=== PATIENT | female | born 1950 | race Caucasian/White ===

== ENCOUNTER 2023-12-19 23:00 | Inpatient (IN) | payer MEDICARE, OTHER, SELFPAY ==
[2023-12-19] VITALS (9 sets, daily range): BP systolic 104–140; BP diastolic 57–72; BMI 18.7
--- NOTE | 2023-12-19 21:04 | ED.GENMED ---
Addendum entered and electronically signed by Ron Jara DO 12/20/23 00:47:
Call from [facility] CAT scan ordered earlier patient with mets, gallstones, distended colon possible stercoral colitis, distended bladder
Reviewed with admitting team ANGELINA
Original Note:
History of Present Illness
General
Chief Complaint: Dizziness
Source: patient and family
Exam Limitations: none
Time Seen by Provider: 12/19/23 20:34
Nursing documentation reviewed up to this point in time: agreed with
Travel History
Have you had any contact with someone who has COVID-19?: No
Do you have any symptoms of coronavirus? Fever > 100 degrees, chills, cough, shortness of breath, sore throat, loss of taste or smell, muscle aches, or headache?: No
History of Present Illness
History of Present Illness:
73-year-old female presents emerged from complaining of nausea and dizziness that started 7 PM tonight. She has been getting weaker since her last treatment on 12/11/2023. She has chronic right lower extremity edema. She has stage IV lung cancer
with metastasis to the liver and brain. The brain was irradiated.
Past History
Past History
ED Past Medical History: Cancer (Lung, breast)
ED Past Surgical History: Other
Social History
Tobacco: Non-smoker
Alcohol: None
Drug: None
Living: with family
Review of Systems
Review of Systems
Allergies reviewed?: Yes
All Other Systems: Not applicable
Constitutional: Reports fatigue
EENT: Reports no symptoms
Respiratory: Reports no symptoms
Cardiac: Reports no symptoms
ABD/GI: Reports nausea
: Reports no symptoms
Musculoskeletal: Reports no symptoms
Skin: Reports no symptoms
Neurological: Reports weakness
Endocrine: Reports no symptoms
Hematologic/Lymphatic: Reports no symptoms
Psychiatric: Reports no symptoms
Phy Exam
Physical Exam
Physical Exam:
Physical Exam
General: Chronic ill appearance, afebrile
Neck: supple. no meningeal signs. normal posterior pharynx
Heart: s1/s2 tachycardia, no murmur. equal radial
pulses.
HEENT: Pupils equal round reactive to light, EOMI
Lungs: no acute respiratory distress. clear bilaterally
Abdomen: normal bowel sounds. not tender. no CVAT
Neuro: alert and oriented. no focal neurological deficits cranial nerves II through XII intact
Skin: no rash
Psychiatric: well kept. interactive and cooperative
Extremities: Right lower extremity edema. no calf tenderness. negative homans. good distal pulses
Course
Orders/Labs/Results
Orders:
Orders
12/19/23 20:36
CT Head W/o Iv Contrast Urgent
Comment:
Reason For Exam: dizziness
12/19/23 20:38
Electrocardiogram (*1) Urgent
Reason for Study: Vertigo / Dizzy
EKG- Treatment ONCE
12/19/23 20:39
IV Insert/Care/Rem.- Treatment PRN
12/19/23 20:58
Complete Blood Count/With Diff Urgent
Comprehensive Metabolic Panel Urgent
12/19/23 21:04
0.9% Sodium Chloride 1000 ml [Nss] 1,000 ml IV BOLUS
12/19/23 21:34
* Blood Bank Products Urgent
Dr's Orders: 1 unit prbcs
Blood Bank Products: *Packed RBC Leuko(PRBC's)
Quantity: 1
Transfuse Today: Yes
Reason: Anemia
12/19/23 21:54
Type+Screen Urgent
BBK Wristband Number:
12/19/23 22:24
Admit/Transfer Patient As Directed
Co-Sign Provider:
Level of Care: Inpatient admission
Assign to:: Medical/Surgical
Physician / Group: kathleen
Diagnosis: pancyropenia
Reason for Hospitalization: pancytopenia
Expected length of stay greater than two midnights?: Yes
ELOS- Estimated Length of Stay in days: 2
I certify the patient meets the requirements for IP care: Yes
12/19/23 22:25
Code Status As Directed
Resuscitation Status: Full Code
12/19/23 22:27
C difficile Antigen & Toxins Urgent
NISHA Source: Feces/Stool
Specimen Description:
Stool Culture Urgent
NISHA Source: Feces/Stool
Specimen Description:
12/19/23 22:29
Blood Bank Products [* Blood Bank Products] Routine
Blood Bank Products: Platelets Leukoreduced
Quantity: 1
Transfuse Today: Yes
Reason: Thrombocytopenia
12/19/23 22:30
Blood Culture Q30M
NISHA Source: Blood/Venous
Specimen Description:
12/19/23 22:31
Potassium Chloride [KCl] 40 meq 0.9% Sodium Chloride 250 ml [Nss] 250 ml IV NOW
12/19/23 22:39
Abdomen/Pelvis wo Contrast CT [CT Abd/pelvis Wo Iv Cont] Urgent
Comment:
Reason For Exam: abdominal distention/ diarrhea
12/19/23 23:00
Blood Culture Q30M
NISHA Source: Blood/Venous
Specimen Description:
Abnormal Lab Results
12/19/23 12/19/23
20:58 21:54
WBC 1.1 L* 10^3/uL
(4.8-10.8)
RBC 1.86 L 10^6/uL
(4.20-5.40)
Hgb 6.1 L* g/dL
(12.0-16.0)
Hct 17.3 L* %
(37.0-47.0)
MCH 32.8 H pg
(27.0-31.0)
RDW 18.6 H %
(11.5-14.5)
Plt Count 7 L* 10^3/uL
(130-400)
Absolute Neuts (auto) 0.6 L* 10^3/uL
(1.4-6.5)
Absolute Lymphs (auto) 0.3 L 10^3/uL
(1.2-3.4)
Immature Gran % 0.9 H %
(0-0.5)
Monocytes % 15.9 H %
(1.7-9.3)
Sodium 127 L mmol/L
(135-145)
Potassium 3.3 L mmol/L
(3.5-5.1)
Chloride 95 L mmol/L
(98-107)
BUN 49 H mg/dl
(7-17)
Creatinine 1.4 H mg/dL
(0.6-1.0)
Glucose 124 H mg/dl
(70-99)
Total Protein 5.9 L g/dl
(6.3-8.2)
Albumin 2.9 L g/dl
(3.5-5.0)
Crossmatch IS Only See Detail
12/19/23 20:58
12/19/23 20:58
Vital Signs
Initial and Last Documented VS:
Initial Vital Signs
Temp Pulse Resp BP Pulse Ox
97.3 F 103 19 126/72 97
12/19/23 19:43 12/19/23 19:43 12/19/23 19:43 12/19/23 19:43 12/19/23 19:43
Last Documented Vital Signs
Temp Pulse Resp BP Pulse Ox
98.9 F 93 20 136/72 97
12/19/23 23:23 12/19/23 23:23 12/19/23 23:23 12/19/23 23:23 12/19/23 19:43
MDM/Problems Addressed
Differential Diagnosis Includes:
Anemia, pancytopenia, brain metastasis, CVA
MDM/Problems Addressed:
73-year-old female with pancytopenia, blood transfusion ordered. Admit to hospitalist. No signs of bleeding. No signs of
Chronic conditions affecting care: Cancer (Lung cancer)
Acute Exacerbation and/or Progression of Chronic Illness: Cancer (Lung cancer on chemo)
*Radiology
Radiology exam reviewed: radiology read reviewed (CT head no acute findings)
*Pulse Oximetry
Patient hypoxic: no
*EKG
Interpreted by ED Provider?: Yes
EKG Intrepretation Date: 12/19/23
EKG Intrepretation Time: 21:27
Interpretation: abnormal
Comparison EKG: changes noted
Heart Rate: 106
Rate: tachycardiac
Rhythm: sinus tachycardia
[place]: normal axis
Interval: normal interval
QRS Pattern: normal QRS
Ischemia: no ischemia
*Cylinder Handler Interpretation
Rate: tachycardiac
Interpretation: abnormal
Heart Rate: 106
Rhythm: sinus tachycardia
*Critical Care Note
Total Time (30-74mins, 75-104mins- exclusive of procedures): 30
comment:
Critical care statement: A total of 30 minutes of critical care time was provided for this patient. This includes management of unstable vital signs, evaluation of the patient at bedside, reviewing the patient's pertinent medical records, discussion
with consultants, review of old EKGs and review of pertinent medical records. This time with separate from time utilized to perform the aforementioned documented procedures
Data Reviewed
Review of Other/Old Records Reveals: Labs
Patient Management
Social determinants of health affecting care: Living situation and Strong social support
Discussion with other providers: Hospitalist
Escalation/DeEscalation of care consider admission/obs:
Admit indicated
ED Attending Note
-
Portions of this chart may have been created with voice recognition software.� Occasional wrong word or��sound alike� substitutions may have occurred due to the inherent limitations of voice recognition software.
Discharge Plan
Departure
Patient Disposition: Admit
Date of Disposition: 12/19/23
Time of Disposition: 21:32
Admit to: Med/Surg
Presentation/result/management discussed w/ accepting MD/DO: Hospitalist
Patient with high blood pressure during this ER visit?: Yes
Condition: Fair
Discharge Problem:
Pancytopenia, Hyponatremia
Interventions
Interventions:
*Risk Screen - Suicide Last Done: 12/19/23 19:51
*General Assessment Last Done: 12/19/23 19:51
*Neglect/Abuse Screening Last Done: 12/19/23 19:51
ED- Fall Risk Assessment Last Done: 12/19/23 19:51
*ED COVID-19 Vaccine History Last Done: 12/19/23 19:51
ED- Neurological Assessment Last Done: 12/19/23 19:51
ED- Cardiac Assessment Last Done: 12/19/23 19:51
ED Swallowing Screen Last Done: 12/19/23 23:17
[2023-12-19 21:15] LABS: ALT (SGPT) < 10 U/L (0-35); AST (SGOT) 18 U/L (14-36); Albumin 2.9 g/dl (3.5-5.0); Alkaline Phosphatase 92 U/L (38-126); Blood Urea Nitrogen 49 mg/dl (7-17); Calcium 8.6 mg/dl (8.4-10.2); Carbon Dioxide 24 mmol/L (22-30); Chloride 95 mmol/L (98-107); Estimated Creatinine Clearance 24 ml/min; Glucose 124 mg/dl (70-99); Potassium 3.3 mmol/L (3.5-5.1); Sodium 127 mmol/L (135-145); Total Bilirubin 0.7 mg/dl (0.2-1.3); Total Protein 5.9 g/dl (6.3-8.2); eGFR 39.23
[2023-12-19 21:25] LABS: % Eosinophils 0.9 % (0-6); % Immature Granulocytes 0.9 % (0-0.5); % Lymphocytes 29.9 % (20.5-51.1); % Monocytes 15.9 % (1.7-9.3); % Neutrophils 52.4 % (42.2-75.2); Absolute Lymphocytes 0.3 10^3/uL (1.2-3.4); Absolute Monocytes 0.2 10^3/uL (0.1-0.6); Mean Corp Hgb Conc. 35.3 g/dL (33.0-37.0); Mean Corpuscular Hgb 32.8 pg (27.0-31.0); Mean Platelet Volume 9.4 fL (7.4-10.4); Nucleated Red Blood Cells % 0 %; Red Blood Cell Count 1.86 10^6/uL (4.20-5.40); Red Cell Dist. Width 18.6 % (11.5-14.5)
[2023-12-19 21:28] LABS: Absolute Neutrophils 0.6 10^3/uL (1.4-6.5); Hematocrit 17.3 % (37.0-47.0); Hemoglobin 6.1 g/dL (12.0-16.0); Platelet Count 7 10^3/uL (130-400); White Blood Cell Count 1.1 10^3/uL (4.8-10.8)
[2023-12-19] MEDS: NSS 1000 IV (21:39)
--- NOTE | 2023-12-19 22:33 | HPS.HSE ---
Addendum entered and electronically signed by José Ohara MD 12/19/23 22:35:
Hold Cadence.
Original Note:
Family Physician
-
Family Physician: Neal Matson
Chief Complaint
-
weakness
History of Present Illness
73-year-old female past medical history of stage IV lung cancer with metastases to liver and brain on chemotherapy followed at [facility], breast cancer status post left breast lumpectomy, anemia of chronic disease, anxiety/depression, insomnia,
history of right hip replacement presenting with severe weakness, dizziness for the past several days. Patient has been getting severely weaker since her last chemotherapy treatment on 12/11. History is obtained from daughter. Patient does have
abdominal distention and has been having loose stools for the past week. She has been taking Imodium as needed. No fever, nausea or vomiting, cough, shortness of breath, chest pain, urinary symptoms.
Patient had routine imaging including MRI brain and CT abdomen pelvis last week at [facility]. Daughter has reports with her. CT abdomen pelvis showed some slightly enlarged tumor burden in the liver, stable/slightly larger metastatic
retroperitoneal and upper abdominal lymphadenopathy, slight mesenteric haziness may be vascular congestion, thickening of rectum possibly proctocolitis, cholelithiasis with mild gallbladder distention and mild gallbladder thickening.
Medical History
Past Medical History
Past Medical History: Reports Other (stage IV lung cancer with metastases to liver and brain on chemotherapy followed at [facility], breast cancer status post left breast lumpectomy, anemia of chronic disease, anxiety/depression, insomnia, history of
right hip replacement)
Past Surgical History: Reports None
Social History
Tobacco: Non-smoker
Alcohol: None
Drug: None
Family History
Family History: Not pertinent
Allergies / Home Medications
Allergies reflects when Allergies were last updated in [facility].
Home Medications with original date entered in [facility]
Allergy/Medication List:
Allergies
Allergy/AdvReac Type Severity Reaction Status Date / Time
Penicillins Allergy Unknown Verified 04/14/23 20:50
Home Medications
osimertinib 80 mg tablet (Tagrisso) 80 mg PO DAILY Cancer 02/11/23
lorazepam 0.5 mg tablet (Ativan) 0.5 mg PO BID PRN anxiety 04/15/23
citalopram 10 mg tablet 10 mg PO DAILY@199910/12/23
folic acid 1 mg tablet 1 mg PO DAILY@199910/12/23
olanzapine 5 mg tablet 5 mg PO USEASDIRECTD 10/12/23
ondansetron HCl 8 mg tablet 8 mg PO Q8H PRN nausea/vomiting 10/12/23
olanzapine 5 mg tablet 5 mg PO HS PRN nausea 12/19/23
pantoprazole 40 mg tablet,delayed release 40 mg PO DAILY PRN gi upset 12/19/23
Review of Systems
-
History Source: Patient
A 12 point ROS was completed and negative except as noted: Yes
Constitutional: Reports No Symptoms
EENT: Reports No Symptoms
Respiratory: Reports No Symptoms
Cardiac: Reports No Symptoms
Abdomen/GI: Reports No Symptoms
: Reports No Symptoms
Musculoskeletal: Reports No Symptoms
Skin: Reports No Symptoms
Neurological: Reports No Symptoms
Endocrine: Reports No Symptoms
Hematologic/Lymphatic: Reports No Symptoms
Psych: Reports No Symptoms
Physical Exam
Vital Signs
Vital Signs
Temp Pulse Resp BP Pulse Ox
97.3 F 95 21 116/64 97
12/19/23 19:43 12/19/23 21:15 12/19/23 21:15 12/19/23 21:15 12/19/23 19:43
Physical Exam
General: Well Developed, Well Nourished and No Apparent Distress
HEENT: NormoCephalic, Moist mucous membranes and Atraumatic
Respiratory: Clear
Cardiac: S1/S2 and Regular Rhythm; No Murmur or Rub
GI: Soft, Non Tender, Normal Bowel Sounds, Tender and Distended; No Organomegaly
Rectal: Deferred by Provider
Musculoskeletal: No Clubbing, No Cyanosis and No Edema
Skin: No Rash
Neuro: Nonfocal/grossly intact
Laboratory Results
-
12/19/23 20:58
12/19/23 20:58
Laboratory Results
Total Bilirubin 0.7 mg/dl (0.2-1.3) 12/19/23 20:58
AST 18 U/L (14-36) 12/19/23 20:58
ALT < 10 U/L (0-35) 12/19/23 20:58
Alkaline Phosphatase 92 U/L (38-126) 12/19/23 20:58
Data Reviewed
-
Lab Data: Labs Reviewed by me
Old Records: Reviewed
Impression/Plan
-
IMPRESSION:
PLAN:
# Abdominal distention//loose bowel movements
-Patient diffusely tender to palpation of abdomen and abdomen distended
-CAT scan abdomen performed a week ago showing some enlarging cancer lesions, possibly proctocolitis/mild gallbladder wall thickening
-Check stool culture/C. difficile
-Check blood cultures
-No fever
-NPO
-Check CT abdomen to evaluate for worsening infection
-Hold off on antibiotics at this time
#Pancytopenia secondary to chemotherapy
-See individually below
-No fever
#Leukopenia
-ANC of 0.6
# Acute on chronic anemia
-1 unit PRBC transfusion
#Thrombocytopenia
-Platelets of 7
-1 unit platelet transfusion
# Hypokalemia due to GI losses
-Replete potassium
# Hyponatremia secondary to GI losses
-IV fluids
# Acute kidney injury
-Creatinine 1.4 from baseline 0.7 in April
-Monitor with IV
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
History of breast cancer status post left breast lumpectomy
Brain metastases status post radiation
Anemia of chronic disease
Anxiety/depression
-Continue citalopram, Ativan, olanzapine
Insomnia
History of right hip replacement
-Chronic right lower extremity swelling worse than left
History of urinary retention
Full code
DVT prophylaxis-SCDs
NPO
[2023-12-20] VITALS (12 sets, daily range): BP systolic 100–141; BP diastolic 49–72; BMI 18.6
[2023-12-20] MEDS: ATIVAN 0.5 MG PO ×3 (01:46→20:12)
[2023-12-20] MEDS: NSS 1000 IV ×2 (01:47→17:19)
[2023-12-20 01:52] LABS: Mean Corp Hgb Conc. 34.9 g/dL (33.0-37.0); Mean Corpuscular Hgb 33.1 pg (27.0-31.0); Mean Platelet Volume 11.2 fL (7.4-10.4); Red Cell Dist. Width 18.5 % (11.5-14.5)
[2023-12-20 01:54] LABS: Hematocrit 15.2 % (37.0-47.0); Hemoglobin 5.3 g/dL (12.0-16.0); White Blood Cell Count 1.1 10^3/uL (4.8-10.8)
[2023-12-20 01:55] LABS: Platelet Count 22 10^3/uL (130-400)
--- NOTE | 2023-12-20 02:08 | W.PN.UPDATE ---
Addendum entered and electronically signed by ANGELINA Albarado 12/20/23 19:22:
12/20 AT 0200 RN notified ASSISTED LIVING EXECUTIVE DIRECTOR Repeat Hgb prior to first unit of PRBC's noted to be 5.3, therefore one more unit of PRBC's added with total of 2 units of PRBC's to be inused, labs due in AM.
Original Note:
Update Note
Progress Note Update
CT abd shows stercoral proctocolitis, will add antibiotics Cefepime 1g [id number]. Will add bladder scan for urinary retention, and UA.
[2023-12-20 02:11] LABS: ALT (SGPT) < 10 U/L (0-35); AST (SGOT) 16 U/L (14-36); Albumin 2.5 g/dl (3.5-5.0); Alkaline Phosphatase 87 U/L (38-126); Blood Urea Nitrogen 44 mg/dl (7-17); Calcium 8.1 mg/dl (8.4-10.2); Carbon Dioxide 26 mmol/L (22-30); Chloride 97 mmol/L (98-107); Estimated Creatinine Clearance 24 ml/min; Glucose 104 mg/dl (70-99); Sodium 132 mmol/L (135-145); Total Bilirubin 0.6 mg/dl (0.2-1.3); Total Protein 5.3 g/dl (6.3-8.2); eGFR 39.23
--- NOTE | 2023-12-20 02:21 | W.PN.UPDATE ---
Update Note
Progress Note Update
hgb 5.3 prior transfusing 1 unit of PRBC's for hgb of 6.1. No active bleeding, stable vitals. Will order another unit of blood, total of 2 units of PRBC's
--- NOTE | 2023-12-20 03:15 | PTCARENOTE ---
Received pt from the ED via stretcher, pulled over to hospital bed by staff x3. Pt AAOx3, anxious and tearful. Sylvia band to LUE for hx of lumpectomy. Full assessment as documented. Most recent Hgb level 5.3 and platelets 22. Pt received 1 unit
platelets in the ED, 1 unit of PRBC ordered, sent for and initiated, see TAR. Pt with outstanding IV Potassium order, pt is difficult to obtain IV access, arrives to the unit with singular access to the RUE. Pt tolerating blood products, VAT team
called for second line and obtained to R forearm, IV Potassium obtained from pharmacy and hung, see MAR. Pt oriented to room and use of call nunez. Pt resting comfortably at this time, emotional support and warm blankets provided.
[2023-12-20] MEDS: MAXIPIME 1000 MG IV ×2 (03:21→13:04)
[2023-12-20] MEDS: STERILE WATER FOR INJECTION 10 ML IV ×2 (03:21→13:04)
[2023-12-20] MEDS: KCL 270 MEQ IV (03:42)
[2023-12-20 04:06] LABS: Urine Albumin Trace (Neg - Trace); Urine Bilirubin Negative (Negative); Urine Character Clear (Clear); Urine Color Yellow; Urine Glucose Negative (Negative); Urine Ketone Negative (Negative); Urine Leukocyte Negative (Negative); Urine Nitrite Negative (Negative); Urine Occult Blood Negative (Negative); Urine Urobilinogen Negative (Neg - 1+)
--- NOTE | 2023-12-20 05:11 | PTCARENOTE ---
Pt repeatedly reports she has to urinate; purewick in place with adequate suction, pt remains dry. Pt with a hx of urinary retention; bladder scanned for >725mL urine due to no urine output, straight cath performed, pt tolerated well. 875mL holland
colored urine drained from pt's bladder, UA obtained and sent to the lab.
--- NOTE | 2023-12-20 07:42 | CON.GI ---
Addendum entered and electronically signed by Neal Nix MD 12/20/23 10:42:
Patient seen and examined, agree for Spectre's note. Patient presents with dizziness, decreased appetite and loose stools. Has been using Imodium recently for loose stools, has not had any vomiting has had decreased appetite. She denies any
significant abdominal pain now, and abdominal exam is benign. CT scan which I did personally review shows large amount of stool throughout the colon with fecal impaction as well as metastatic disease. At this point I discussed the importance of
enema, and may need to repeat to help start evacuation. Will start clear liquid diet for now given no vomiting and benign exam. Can start MiraLAX once infection has resolved.
Original Note:
Consultation
-
Date/Time Consultation Requested: 12/20/23729
Date/Time Consultation Performed: 12/20/23739
Requesting Provider: Aly Hui MD
Performing Provider: ANGELINA Johansen, Adrián Nix MD
Reason for Consultation: constipation
Medical History
Chief Complaint / HPI
Chief Complaint: weakness
History of Present Illness:
Pt is a 73yo present with hx stage IV lung CA with mets to liver and brain on oral chemo Tagrisso and Infusion therapy every 3 weeks with last treatment 12/06/23 followed by [facility]. She also has hx breast CA with prior lumpectomy 20
years ago, anemia with current pancytopenia, anxiety, depression, insomnia, wrist fracture with fall and hip replacement then after recovery fracture of other hip. She now presents to with weakness and dizziness and onset of loose stools with
Imodium use. Per family noted she had recent imaging with MRI brain and CT abdomen pelvis last 1-2 weeks with some slightly enlarged tumor burden in the liver, stable/slightly larger metastatic retroperitoneal and upper abdominal
lymphadenopathy, slight mesenteric haziness may be vascular congestion, thickening of rectum possibly proctocolitis, cholelithiasis with mild gallbladder distention and mild gallbladder thickening. She had recent CT in ER with Verbal report of CT
with stercoral proctocolitis. Pt also noted with pancytopenia on admission WBC 1. 1, hbg 6.1, platelets 7,000, with ANC of 0.6, Na 127, K 3.3, and creat 1.4.
Pt currently admits to decreased appetite. She does states some recent diarrhea and feeling of stool leaking out without control with hx prior constipation She denies dysphagia, GERD, vomiting, abdominal pain,blood or black in stools. Pt
will get diarrhea with small amount so soft stool
Past Medical History
Past Medical History: Cancer (stage IV lung CA with metastases to liver and brain on chemo follows at [facility], breast cancer s/p lumpectomy), Psychiatric (anxiety/depression) and Other (anemia, insomnia, PNA)
Past Surgical History: Orthopedic (wrist fracture, February 2023 with left hip fracture with ORIF then April 2023 with right hip fracture with right hemiarthroplasty )
Social History
Tobacco: Former Smoker
Alcohol: None
Drug: None
Personal:
Living: With Family
Employment: Retired
Family History
Family History: Other (no family hx colon Ca or polyps)
Allergies / Home Medications
Allergy/AdvReac Type Severity Reaction Status Date / Time
Penicillins Allergy Unknown Verified 04/14/23 20:50
Medication Instructions Recorded
osimertinib 80 mg tablet (Tagrisso) 80 mg PO DAILY Cancer 02/11/23
lorazepam 0.5 mg tablet (Ativan) 0.5 mg PO BID PRN anxiety 04/15/23
citalopram 10 mg tablet 10 mg PO DAILY@199910/12/23
folic acid 1 mg tablet 1 mg PO DAILY@199910/12/23
olanzapine 5 mg tablet 5 mg PO USEASDIRECTD 10/12/23
ondansetron HCl 8 mg tablet 8 mg PO Q8H PRN nausea/vomiting 10/12/23
olanzapine 5 mg tablet 5 mg PO HS PRN nausea 12/19/23
pantoprazole 40 mg tablet,delayed 40 mg PO DAILY PRN gi upset 12/19/23
release
Review of Systems
-
History Source: Patient
Constitutional: Reports Weight Loss and Other (decreased appetite )
EENT: Reports No Symptoms
Respiratory: Reports No Symptoms
Cardiac: Reports No Symptoms
Abdomen/GI: Reports Diarrhea, Constipated and Other (decreased appetite )
: Reports No Symptoms
Musculoskeletal: Reports No Symptoms
Skin: Reports No Symptoms
Neurological: Reports Dizzy and Weakness
Endocrine: Reports No Symptoms
Hematologic/Lymphatic: Reports No Symptoms
Vital Signs
Temp Pulse Resp BP Pulse Ox
98.1 F 83 20 111/63 100
12/20/23 05:24 12/20/23 05:24 12/20/23 05:24 12/20/23 05:24 12/20/23 02:55
Physical Exam
Exam
General: Other (cachetic appearing but awake and conversant )
HEENT: Normocephalic and Anicteric
Respiratory: Clear
Cardiac: Regular Rhythm
GI: Soft, Non Tender and Distended (but soft )
Rectal: Other (pt refused )
Musculoskeletal: No Clubbing and No Cyanosis
Skin: Warm and Dry
Neuro: Awake, Alert and AO x 3 (with occasional forgetfulness to questioning)
Psych: Calm
Results
WBC 1.1 10^3/uL (4.8-10.8) L* 12/20/23 01:23
Hgb 5.3 g/dL (12.0-16.0) L* 12/20/23 01:23
Hct 15.2 % (37.0-47.0) L* 12/20/23 01:23
MCV 95.0 fL (81.0-99.0) 12/20/23 01:23
Plt Count 22 10^3/uL (130-400) L* D 12/20/23 01:23
Absolute Neuts (auto) Cancelled 12/20/23 01:23
Sodium 132 mmol/L (135-145) L 12/20/23 01:23
Potassium 3.0 mmol/L (3.5-5.1) L 12/20/23 01:
Chloride 97 mmol/L (98-107) L 12/20/23 01:23
Carbon Dioxide 26 mmol/L (22-30) 12/20/23 01:23
BUN 44 mg/dl (7-17) H 12/20/23 01:
Creatinine 1.4 mg/dL (0.6-1.0) H 12/20/23 01:
Calcium 8.1 mg/dl (8.4-10.2) L 12/20/23:
Total Bilirubin 0.6 mg/dl (0.2-1.3) 12/20/23 01:
AST 16 U/L (14-36) 12/20/23 01:
ALT < 10 U/L (0-35) 12/20/23 01:
Alkaline Phosphatase 87 U/L (38-126) 12/20/23 01:23
Diagnostic Image Results:
Prior GI Procedures:
EGD: about 5 years ago recalls as normal
Colonoscopy: about 5 years ago recalls as normal
Assessment / Plan
-
Pt is a 73yo present with hx stage IV lung CA with mets to liver and brain on oral chemo Tagrisso and Infusion therapy every 3 weeks with last treatment 12/06/23 followed by [facility]. She also has hx breast CA with prior lumpectomy 20
years ago, anemia with current pancytopenia, anxiety, depression, insomnia, wrist fracture with fall and hip replacement then after recovery fracture of other hip. She now presents to with weakness and dizziness and onset of loose stools with
Imodium use. Per family noted she had recent imaging with MRI brain and CT abdomen pelvis last 1-2 weeks with some slightly enlarged tumor burden in the liver, stable/slightly larger metastatic retroperitoneal and upper abdominal
lymphadenopathy, slight mesenteric haziness may be vascular congestion, thickening of rectum possibly proctocolitis, cholelithiasis with mild gallbladder distention and mild gallbladder thickening. She had recent CT in ER with Verbal report of CT
with stercoral proctocolitis. Pt also noted with pancytopenia on admission WBC 1. 1, hbg 6.1, platelets 7,000, with ANC of 0.6, Na 127, K 3.3, and creat 1.4.
-stercoral proctocolitis
-pancytopenia with neutropenia requiring PRBC's and Platelet transfusion on admission
-stage IV lung Ca with mets to brain and liver on current treatment
-hyponatremia/hypokalemia
-distant hx breast CA
-anxiety/depression
-insomnia
-sacral wound
-wrist fx then February 2023 with left hip fracture with ORIF then April 2023 with right hip fracture with right hemiarthroplasty with limited mobility
PLAN:
etiology of weakness with some loose stool with concern for fecal impaction and stercoral proctocolitis
await final reading of CT
with large stool burden will order MOM enema
pt currently declines but encouraged to proceed
I called and updated daughter who will also encourage pt to proceed
after some clearing out from below then will need oral laxative regiment and advance diet
cont abx
s/p transfusion cont to monitor CBC
cont to correct electrolytes
updated nursing staff
will follow
-
-
Thank you for consultation and allowing me to participate in the patient's care. Please call the personalization specialist GI physician during the after hours with any questions or concerns.
[2023-12-20] MEDS: FLAGYL 500 MG 100 IV ×3 (08:09→23:57)
[2023-12-20] MEDS: DULCOLAX 10 MG RECTAL (09:18)
--- NOTE | 2023-12-20 09:49 | WOUNDNOTE ---
L BUTTOCKS AND SACRUM
--- NOTE | 2023-12-20 09:55 | WOUNDNOTE ---
WON RN note: Patient admitted with Pancytopenia,hyponatremia.
See H&P for complete history. Lives at home with .
PMH:Breast and lung cancer with mets to brain, s/p radiation to brain and current with chemo treatment. Ex Smoker, R hip replacement with chronic R leg edema post surgery.
Wound Location and type/assessment: Patient known to service, last seen 10/13/23 for Small DTI on L buttock, R buttock with stage 2 PI vs shearing. Today patient's wounds appear worse and DTI on L buttock evolving. Under dark discolored skin appears
to be shallow pink wound, suspect stage 2 PI. Sacrum,extending to R buttock with stage 2 PI mixed with friction/shear. Patient confirms that she sits in a recliner chair at home and uses gel cushion. Has regular bed at home, able to turn with
minimal assist. takes care of her and makes her protein shakes she states. Both heels are blanchable and intact, boggy. Skin on legs dry, +1 edema legs and feet, + palpable pedal pulses.
Appetite: Poor, recently has no appetite patient states. Encouraged protein in diet.
Pressure redistribution devices in place: On Accumax, turns easily with one assist, repositioned onto L semi side lying position. Brought in air overlay PCT Luis aware and can apply when patient oob to chair. Air chair cushion placed under heels.
Patient aware to also use when sitting, patient can take upon discharge.
Plan: Will order mineral oil to dry flaky skin on legs, large silicone foam to buttocks. Protective foams to heels.
Will confirm orders with hospitalist and updated nurse Cristin.
Updated care plan and will follow as needed.
Note to case management of equipment requested for discharge: VN if agreeable.
Recommend follow up at wound care center upon discharge.
[2023-12-20 10:12] LABS: Hematocrit 21.8 % (37.0-47.0)
[2023-12-20 10:15] LABS: Hemoglobin 7.8 g/dL (12.0-16.0)
--- NOTE | 2023-12-20 10:16 | W.PN.HOSP.TC ---
Today's Communication/Plan
-
Bowel regimen per GI
Continue with antibiotics
IV fluids
Diet per GI
Repeat EKG in the morning
DC Zofran
Trend CBC and BMP
Assessment / Plan
Assessment / Plan
# Sepsis likely secondary to stercoral proctocolitis
-Patient diffusely tender to palpation of abdomen and abdomen distended
-CAT scan abdomen probable fecal impaction with large volume cc throughout the distended rectum
-Check blood cultures in lab
-No fever
-diet per GI
-Continue with cefepime and add Flagyl
-Continue with IV fluids
-Mild prolonged QTc repeat EKG in the morning. Avoid QTc prolonging meds. Tigan as needed
-GI consultation
#Pancytopenia secondary to chemotherapy
-See individually below
-No fever
#Leukopenia
-ANC of 0.6
# Acute on chronic anemia
- status post 2 units of PRBC and hemoglobin 7.8.
#Thrombocytopenia
-Platelets of 22
-s/p 1 unit platelet transfusion
# Hypokalemia due to GI losses
-Replete potassium
# Hyponatremia secondary to GI losses
-IV fluids
# Acute kidney injury
# Urinary retention possible due to severe constipation
-Creatinine 1.4 from baseline 0.7 in April
-Monitor with IV
-Required straight catheterization overnight. Monitor post resolution of constipation.
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
History of breast cancer status post left breast lumpectomy
Brain metastases status post radiation
Anemia of chronic disease
Anxiety/depression
-Continue Ativan, olanzapine. Hold SSRI. Mild prolonged QTc repeat EKG in the morning. Avoid QTc prolonging meds. Tigan as needed
Insomnia
History of right hip replacement
-Chronic right lower extremity swelling worse than left
History of urinary retention
Small deep tissue injury on left buttocks-poa
Right buttock stage II pressure injury poa
Full code
DVT prophylaxis-SCDs in setting of Severe thrombocytopenia
Long-term prognosis poor
Anticipated Discharge: > 48 hours
Subjective/Interval History
-
Date of Service: December 20, 2023
Denies any nausea or vomiting
Objective Data
-
Labs:
Laboratory Results
12/20/23 12/20/23
01:23 10:04
WBC 1.1 L*
Hgb 5.3 L* 7.8 L D
Hct 15.2 L* 21.8 L
Plt Count 22 L* D
Sodium 132 L Pending
Potassium 3.0 L Pending
Chloride 97 L Pending
Carbon Dioxide 26 Pending
BUN 44 H Pending
Creatinine 1.4 H Pending
Glucose 104 H Pending
Calcium 8.1 L Pending
Total Bilirubin 0.6
AST 16
ALT < 10
Alkaline Phosphatase 87
Vital Signs:
Vital Signs
Temp Pulse Resp BP Pulse Ox
97.7 F 77 16 110/57 96
12/20/23 08:38 12/20/23 08:38 12/20/23 08:38 12/20/23 08:38 12/20/23 10:07
I&O
12/19/23 12/20/23 12/21/23
06:59 06:59 06:59
Intake Total 1400 / 1400 250 / 250
Output Total 1750 / 1750
Balance -350 / -350 250 / 250
Physical Exam
-
General: No Apparent Distress, Appears Chronically Ill and Cachectic
HEENT: Normocephalic, Atraumatic and Moist Mucous Membranes
Respiratory: Clear to Auscultation
Cardiac: Regular Rhythm and S1/S2; Negative Murmur, Rub or Gallop
GI: Soft, Nontender, Nondistended and Normal Bowel Sounds; Negative Organomegaly
Rectal: Deferred by Provider
Musculoskeletal: No Clubbing, No Cyanosis and No Edema
Skin: Negative Rash
Neuro: Awake, Oriented, AO x 3, No Motor Deficits and Nonfocal/Grossly Intact
Psych: Calm
Data Reviewed
-
Total Time Spent with Patient (in minutes): 55
[2023-12-20] MEDS: ZOFRAN 4 MG IV (10:19)
--- NOTE | 2023-12-20 10:51 | CM ---
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
in her 's business. Pharmacy is [facility] in [place] and PCP is Dr. Neal Matson with [facility]. Discharge plan of care to be determined based on medical progression.
[2023-12-20 10:55] LABS: Blood Urea Nitrogen 37 mg/dl (7-17); Calcium 7.6 mg/dl (8.4-10.2); Carbon Dioxide 26 mmol/L (22-30); Chloride 105 mmol/L (98-107); Estimated Creatinine Clearance 26 ml/min; Glucose 98 mg/dl (70-99); Potassium 3.5 mmol/L (3.5-5.1); Sodium 134 mmol/L (135-145); eGFR 42.88
[2023-12-20] MEDS: TYLENOL 1000 MG PO (20:12)
[2023-12-20] MEDS: FOLVITE 1 MG PO (20:13)
[2023-12-21] VITALS (11 sets, daily range): BP systolic 101–133; BP diastolic 37–68; PULSE 87; O2SAT 96–99
[2023-12-21] MEDS: MAXIPIME 1000 MG IV ×2 (02:38→13:18)
[2023-12-21] MEDS: STERILE WATER FOR INJECTION 10 ML IV ×2 (02:38→13:18)
--- NOTE | 2023-12-21 05:50 | W.PN.GI.CBS2 ---
Today's Communication / Plan
-
See assessment and plan for details.
Assessment / Plan
-
1. Constipation/fecal impaction: Now much improved symptoms after suppository and enema. Her exam is now benign and overall feeling better. Will advance diet and add MiraLAX daily, can continue enemas as needed in the future. Will sign off for
now, please call back with any further questions.
Subjective
Subjective
Date of Service: December 21, 2023
Patient had several large bowel movements after suppository and enema, significant overnight, though feeling better, no significant abdominal pain, no nausea.
Objective
Data Reviewed
Laboratory Data:
Laboratory Results
Total Bilirubin 0.6 mg/dl (0.2-1.3) 12/20/23 01:23
AST 16 U/L (14-36) 12/20/23 01:23
ALT < 10 U/L (0-35) 12/20/23 01:23
Alkaline Phosphatase 87 U/L (38-126) 12/20/23 01:23
Vital Signs and I&O:
Vital Signs
Temp Pulse Resp BP Pulse Ox
98.2 F 77 17 103/54 98
12/21/23 03:10 12/21/23 03:10 12/21/23 03:10 12/21/23 03:10 12/21/23 03:10
I&O
12/19/23 12/20/23 12/21/23
06:59 06:59 06:59
Intake Total 1400 / 1400 970 / 970
Output Total 1750 / 1750 650 / 650
Balance -350 / -350 320 / 320
Physical Exam
Physical Exam
General: NAD
Abdomen: normal bowel sounds, soft, no tenderness, no masses or bruits, no ascites
[2023-12-21 06:16] LABS: Hematocrit 24.3 % (37.0-47.0); Hemoglobin 8.4 g/dL (12.0-16.0); Mean Corp Hgb Conc. 34.6 g/dL (33.0-37.0); Mean Corpuscular Hgb 31.8 pg (27.0-31.0); Mean Platelet Volume 10.8 fL (7.4-10.4); Nucleated Red Blood Cells % 0 %; Red Blood Cell Count 2.64 10^6/uL (4.20-5.40); Red Cell Dist. Width 17.9 % (11.5-14.5)
[2023-12-21 06:30] LABS: Platelet Count 10 10^3/uL (130-400)
[2023-12-21 06:39] LABS: Blood Urea Nitrogen 35 mg/dl (7-17); Calcium 7.6 mg/dl (8.4-10.2); Carbon Dioxide 24 mmol/L (22-30); Chloride 107 mmol/L (98-107); Estimated Creatinine Clearance 28 ml/min; Glucose 86 mg/dl (70-99); Potassium 3.3 mmol/L (3.5-5.1); Sodium 133 mmol/L (135-145); eGFR 47.21
[2023-12-21] MEDS: SENOKOT-S 1 TABLET PO ×2 (07:54→20:56)
[2023-12-21] MEDS: MIRALAX 17 GRAMS PO (07:54)
[2023-12-21] MEDS: FLAGYL 500 MG 100 IV ×3 (07:54→23:26)
[2023-12-21] MEDS: KCL ELIXIR 40 MEQ PO (07:54)
[2023-12-21] MEDS: HYDROPHOR 1 APPLIC TOPICAL (07:55)
[2023-12-21] MEDS: PROTONIX 40 MG PO (07:56)
[2023-12-21] MEDS: ATIVAN 0.5 MG PO ×3 (07:57→20:56)
[2023-12-21 10:04] LABS: Absolute Neutrophils -Man Diff 1.3 10^3/uL (1.4-6.5); Band Neutrophils 16 % (0-3); Eosinophils 1 % (0-6); Lymphocytes 16 % (20-51); Monocytes 14 % (2-9); Segmented Neutrophils 53 % (42-75)
[2023-12-21 10:05] LABS: Anisocytosis Slight; Hypochromasia 1+; Macrocytosis Few; Microcytosis Few; Normal RBC Morphology No; Platelets Checked Yes; Total Cells Counted 100
--- NOTE | 2023-12-21 10:15 | W.PN.HOSP.TC ---
Addendum entered and electronically signed by Aly Hui MD 12/21/23 11:54:
Severe protein caloric malnutrition chronic
Original Note:
Today's Communication/Plan
-
Monitor p.o. tolerance
Continue with aggressive bowel regimen
Replete platelets
PT and OT
Assessment / Plan
Assessment / Plan
# Sepsis likely secondary to stercoral proctocolitis
-CAT scan abdomen probable fecal impaction with large volume cc throughout the distended rectum
-Check blood cultures in lab negative so far
-No fever
-Status post suppository and enema with good results
-Continue with cefepime and add Flagyl
-DC IV fluids
-QTc down trended to 460
-GI consultation
#Pancytopenia secondary to chemotherapy
-See individually below
-No fever
#Leukopenia
-ANC of 0.6
# Acute on chronic anemia
- status post 2 units of PRBC and hemoglobin 8.4
#Thrombocytopenia
-Platelets of 10
-Will transfuse additional 1 unit of platelets today
# Hypokalemia due to GI losses
-Replete potassium
# Hyponatremia secondary to GI losses
-Monitor
# Acute kidney injury
# Urinary retention possible due to severe constipation
-Creatinine 1.4 from baseline 0.7 in April
-Persistent urinary retention and Lindsay catheter placed. CT abdomen pelvis did not show any hydronephrosis.
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
History of breast cancer status post left breast lumpectomy
Brain metastases status post radiation
Anemia of chronic disease
Anxiety/depression
-Continue Ativan, olanzapine and restart citalopram
Insomnia
History of right hip replacement
-Chronic right lower extremity swelling worse than left
History of urinary retention
Small deep tissue injury on left buttocks-poa
Right buttock stage II pressure injury poa
PT/OT-dispo TBD
Full code
DVT prophylaxis-SCDs in setting of Severe thrombocytopenia
Long-term prognosis poor
Anticipated Discharge: > 48 hours
Subjective/Interval History
-
Date of Service: December 21, 2023
Had multiple bowel movements yesterday and today
States of mild abdominal discomfort
Objective Data
-
Labs:
Laboratory Results
12/21/23
05:15
WBC 2.0 L*
Hgb 8.4 L
Hct 24.3 L
Plt Count 10 L* D
Sodium 133 L
Potassium 3.3 L
Chloride 107
Carbon Dioxide 24
BUN 35 H
Creatinine 1.2 H
Glucose 86
Calcium 7.6 L
Vital Signs:
Vital Signs
Temp Pulse Resp BP Pulse Ox
97.2 F 83 16 121/64 97
12/21/23 08:26 12/21/23 08:26 12/21/23 08:26 12/21/23 08:26 12/21/23 08:26
I&O
12/20/23 12/21/23 12/22/23
06:59 06:59 06:59
Intake Total 1400 / 1400 1070 / 1070
Output Total 1750 / 1750 1000 / 1000
Balance -350 / -350 70 / 70
Physical Exam
-
General: No Apparent Distress, Appears Chronically Ill and Cachectic
HEENT: Normocephalic, Atraumatic and Moist Mucous Membranes
Respiratory: Clear to Auscultation
Cardiac: Regular Rhythm and S1/S2; Negative Murmur, Rub or Gallop
GI: Soft, Nontender, Nondistended and Normal Bowel Sounds; Negative Organomegaly
Rectal: Deferred by Provider
Musculoskeletal: No Clubbing, No Cyanosis and No Edema
Skin: Negative Rash
Neuro: Awake, Oriented, AO x 3, No Motor Deficits and Nonfocal/Grossly Intact
Psych: Calm
Data Reviewed
-
Total Time Spent with Patient (in minutes): 54
--- NOTE | 2023-12-21 10:31 | PN.CDI ---
CDI
- -
CDI:
Physician Documentation Request
Admit Date: 12/19/23 23:00
Dear Doctor Korina,
Clinical Indicators:
Patient admitted with sepsis due to stercoral proctocolitis. PMH includes stage IV lung cancer, currently on chemotherapy.
BMI 18.6
12/20 PN, Physical Exam: Cachectic
12/20 note/assessment: -'NFPE: severe muscle and fat loss noted.'
-'Per ASPEN/AND guidelines, pt meets for severe malnutrition in the context of chronic
illness as evidenced by < 50% intake est needs x > 1 month, <75% intake est needs x
>3 months, 6.9% weight loss x 2 months, severe muscle and fat loss.'
Based on the information, which of the following most accurately represents the patient's nutritional status?
Severe Protein Calorie Malnutrition
Cachexia only
Other (please specify)
[place] Criteria (ACP Hospitalist 2017)
2 or more criteria must be present for either
non severe or severe malnutrition
Note that the criteria differs related to the
presence of an acute or chronic illness
Acute Illness Chronic Illness
Energy Intake Non Severe: <75% for >7 days Non Severe: <75% for >1 month
Severe: <50% for >5 days Severe: <75% for >1 month
Weight Loss Non Severe: 1-2% over 1 week Non Severe: 5% over 1 month
5% over 1 month 7.5% over 3 months
7.5% over 3 months 10% over 6 months
1 year N/A 20% over 1 year
Severe: >2% over 1 week Severe: >5% over 1 month
>5% over 1 month >7.5% over 3 months
>7.5% over 3 months >10% over 6 months
1 year N/A >20% over 1 year
Body Fat Non Severe: Mild Decrease Non Severe: Mild Loss
Severe: Moderate Decrease Severe: Severe Loss
Muscle Mass Non Severe: Mild Decrease Non Severe: Mild Loss
Severe: Moderate Decrease Severe: Severe Loss
Fluid Accumulation Non Severe: Mild Accumulation Non Severe: Mild Accumulation
Severe: Moderate to severe Severe: Moderate to severe
accumulation accumulation
Reduced Glove Brusher Strength Non Severe: N/A Non Severe: N/A
Severe: Measurably reduced Severe: Measurably reduced
Additional criteria that can be used to Determine if Mild or Moderate Malnutrition (Merck Manual 2018)
Mild Moderate Severe
Albumin gm/dl <3.0 gm/dl <2.5 gm/dl <2.0 gm/dl
Pre Albumin mg/dl <15 gm/dl <10 mg/dl <5.0 mg/dl
BMI <18.5 <17 <16
Use of terms such as suspected, likely, concern for, or probable (associated with a specific diagnosis that is being evaluated, monitored, or treated as if it exists) are acceptable and can be coded in the inpatient setting, when documented at the
time of discharge.
Thank you,
MAKENZIE Landon RN
CDI Specialist
available via tiger text
Please use your independent medical judgment in providing your response.
[2023-12-21] MEDS: TYLENOL 1000 MG PO (12:21)
--- NOTE | 2023-12-21 12:30 | PTCARENOTE ---
Patient received 1 unit platelets for platelet count of 10. Blood product verified with Carley MEEK, infused through patient's R FA IV, VSS, patient tolerated procedure.
--- NOTE | 2023-12-21 14:31 | CM ---
Continue IV/AB and Flagyl. PT evaluated but no recommendation at this time. Needs increased medical stability and progression before determination. CM will continue to follow and set up services as needed.
[2023-12-21] MEDS: ULTRAM 25 MG PO (15:47)
--- NOTE | 2023-12-21 18:09 | PTCARENOTE ---
Patient yelling out 'help me' repeatedly in room. This RN went in to assess patient, found patient with R FA IV pulled out and wristbands ripped off. MD made aware of IV, L arm limb alert and ID wristbands replaced. Patient turned and repositioned
in bed, warm blanket provided, patient states no concerns at this time.
[2023-12-21] MEDS: FOLVITE 1 MG PO (20:56)
[2023-12-22] VITALS (10 sets, daily range): BP systolic 108–143; BP diastolic 61–88; PULSE 99
[2023-12-22] MEDS: MAXIPIME 1000 MG IV ×2 (02:20→13:11)
[2023-12-22] MEDS: STERILE WATER FOR INJECTION 10 ML IV ×2 (02:20→13:11)
[2023-12-22] MEDS: TIGAN 200 MG IM ×3 (02:49→18:13)
[2023-12-22 04:56] LABS: Hematocrit 27.1 % (37.0-47.0); Hemoglobin 9.4 g/dL (12.0-16.0); Mean Corp Hgb Conc. 34.7 g/dL (33.0-37.0); Mean Corpuscular Hgb 31.9 pg (27.0-31.0); Mean Corpuscular Volume 91.9 fL (81.0-99.0); Nucleated Red Blood Cells % 0 %; Red Blood Cell Count 2.95 10^6/uL (4.20-5.40); White Blood Cell Count 3.5 10^3/uL (4.8-10.8)
[2023-12-22] MEDS: ATIVAN 0.5 MG PO ×3 (04:56→20:31)
[2023-12-22 05:19] LABS: Blood Urea Nitrogen 35 mg/dl (7-17); Calcium 8.1 mg/dl (8.4-10.2); Carbon Dioxide 22 mmol/L (22-30); Chloride 104 mmol/L (98-107); Estimated Creatinine Clearance 28 ml/min; Glucose 94 mg/dl (70-99); Potassium 3.3 mmol/L (3.5-5.1); Sodium 133 mmol/L (135-145); eGFR 47.21
[2023-12-22 05:20] LABS: Platelet Count 10 10^3/uL (130-400)
[2023-12-22] MEDS: FLAGYL 500 MG 100 IV ×3 (08:35→23:05)
[2023-12-22] MEDS: SENOKOT-S 1 TABLET PO ×2 (08:36→20:23)
[2023-12-22] MEDS: MIRALAX 17 GRAMS PO ×2 (08:36→20:23)
[2023-12-22] MEDS: HYDROPHOR 1 APPLIC TOPICAL (08:41)
[2023-12-22 09:09] LABS: Absolute Neutrophils -Man Diff 2.7 10^3/uL (1.4-6.5); Anisocytosis Occasional; Atypical Lymphocytes 4 %; Band Neutrophils 15 % (0-3); Eosinophils 1 % (0-6); Lymphocytes 10 % (20-51); Metamyelocytes 2 % (-); Microcytosis Occasional; Monocytes 5 % (2-9); Normal RBC Morphology No; Platelets Checked Yes; Segmented Neutrophils 63 % (42-75)
[2023-12-22 09:10] LABS: Acanthocytes Occasional; Burr Cells 1+; Poikilocytosis 1+; Total Cells Counted 100
[2023-12-22 09:11] LABS: Toxic Granulation Occassional
--- NOTE | 2023-12-22 09:48 | W.PN.HOSP.TC ---
Addendum entered and electronically signed by Jessica Le MD 12/22/23 14:18:
TEVIN has been ruled out and a more appropriate diagnosis for this patient's condition is CKD stage III
Original Note:
Today's Communication/Plan
-
additional PLT
trial simethicone
repeat x-ray
Assessment / Plan
Assessment / Plan
# Sepsis likely secondary to stercoral proctocolitis
-CAT scan abdomen probable fecal impaction with large volume stool throughout the distended rectum
-blood and stool cultures so far negative
-started on IV Cefepime/Flagyl (day 4) (penicillin allergy unknown)
-Status post suppository and enema with good results
-daily miralax
-appreciate GI
-12/22: persistent discomfort - gas pain? will repeat x-ray to follow up constipation. Asked GI to see again today
#Pancytopenia secondary to chemotherapy
-See individually below
-No fever
#Leukopenia
-ANC of 0.6 on 12/19 - F/U differential today
-no fever
# Acute on chronic anemia
- status post 2 units of PRBC and hemoglobin stable up to 9.4 today
#Thrombocytopenia
-Platelets of 10
-Will transfuse additional 1 unit of platelets today (s/p transfusion on 12/19 and 12/21)
# Hypokalemia due to GI losses
-Replete potassium
# Hyponatremia secondary to GI losses
-Monitor
# Acute kidney injury
# Urinary retention possible due to severe constipation
-Persistent urinary retention and Lindsay catheter placed. CT abdomen pelvis did not show any hydronephrosis.
-creatinine stable 1.2 (baseline since September 2023)
-consider voiding trial prior to discharge
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
History of breast cancer status post left breast lumpectomy
Brain metastases status post radiation
Anemia of chronic disease
Anxiety/depression
-Continue Ativan, olanzapine and restart citalopram
Insomnia
History of right hip replacement
-Chronic right lower extremity swelling worse than left
History of urinary retention
Small deep tissue injury on left buttocks-poa
Right buttock stage II pressure injury poa
PT/OT-dispo TBD
Full code
DVT prophylaxis-SCDs in setting of Severe thrombocytopenia
Long-term prognosis poor
Anticipated Discharge: 24 - 48 hours
Subjective/Interval History
-
Date of Service: December 22, 2023
patient continues to complain of pain
had a BM yesterday
no nausea or vomiting
ate a little bit of breakfast
Objective Data
-
Labs:
Laboratory Results
12/22/23
04:35
WBC 3.5 L
Hgb 9.4 L
Hct 27.1 L
Plt Count 10 L*
Sodium 133 L
Potassium 3.3 L
Chloride 104
Carbon Dioxide 22
BUN 35 H
Creatinine 1.2 H
Glucose 94
Calcium 8.1 L
Vital Signs:
Vital Signs
Temp Pulse Resp BP Pulse Ox
97.9 F 92 18 112/71 97
12/22/23 07:20 12/22/23 07:20 12/22/23 07:20 12/22/23 07:20 12/22/23 07:20
I&O
12/21/23 12/22/23 12/23/23
06:59 06:59 06:59
Intake Total 1070 / 1070 1481 / 1481
Output Total 1000 / 1000 1150 / 1150
Balance 70 / 70 331 / 331
Review of Systems
-
History Source: Patient
All other systems: Reviewed and negative
Physical Exam
-
General: Appears Chronically Ill, Cachectic and Other (appears uncomfortable)
HEENT: Normocephalic, Atraumatic, Moist Mucous Membranes and PERRLA
Respiratory: Clear to Auscultation
Cardiac: Regular Rhythm and S1/S2; Negative Murmur, Rub or Gallop
GI: Soft, Organomegaly and Other (mildly distended, non-tender)
Rectal: Deferred by Provider
Musculoskeletal: No Clubbing, No Cyanosis and No Edema
Skin: Negative Rash
Neuro: Awake, Oriented, AO x 3, No Motor Deficits and Nonfocal/Grossly Intact
Psych: Anxious
Data Reviewed
-
Diagnostic Radiology: Report Reviewed by me
Labs: Labs Reviewed by me
--- NOTE | 2023-12-22 10:30 | PTCARENOTE ---
KCl and simethicone administered to pt per orders. Pills split in half however pt stated 'the pills are getting stuck in my throat.' Attempted to use food and liquid to help, pt began heaving and could not tolerate the rest. made aware, IV pepcid
ordered. Pt transported down to [facility] for obstruction series shortly after.
[2023-12-22] MEDS: NSS (PRESERVATIVE FREE) 8 ML IV (10:50)
[2023-12-22] MEDS: PEPCID 20 MG IV (10:52)
--- NOTE | 2023-12-22 12:38 | W.PN.GI.CBS2 ---
Addendum entered and electronically signed by Ashley Garnica MD 12/22/23 15:59:
I saw and examined the patient.
The DOCTOR OF NURSE ANESTHESIA or PA's note was reviewed and I agree with the note.
Comment: Complaints of abdominal discomfort, has not had much bowel movements in the hospital.
Recent CT showing large volume of stool in the rectum suggesting impaction, also noted is metastatic disease to the liver.
-Constipation
Currently patient is not on narcotics
Abdominal x-ray showing findings of fecal impaction again
Patient has been refusing enemas
Currently on MiraLAX 17 g twice a day.
Explained to the patient that regimen with MiraLAX and Senokot would not be very helpful to move the bowels if there is large amounts of stool in the rectum unless will give her an enema to relieve the fecal impaction . Patient absolutely refusing.
Not for any particular reason.
She is agreeable to magnesium citrate 300 mL as long as she has the commode bedside.
At this time, will give her magnesium citrate, continue MiraLAX and Senokot regimen. Reinforced that she will need to be on a good bowel regimen on a long-term basis.
Once platelets are over 20,000 and patient agreeable, could try milk of molasses enema again.
-Abdominal pain could be related to the metastatic disease in the liver apart from ongoing constipation.
Can reevaluate once constipation is better.
Original Note:
Today's Communication / Plan
-
Dulcolax suppository and increase Miralax
-Patient will not allow enema at this time
Assessment / Plan
-
1. Constipation/fecal impaction:
Plan:
-Discussed with patient ideally would recommend milk of molasses enemas as well as magnesium citrate however patient is refusing this plus manual disimpaction. She does have platelets of 10 and did discuss with her these options.
-She may consider Dulcolax suppository. I did order this.
-She will allow increase in MiraLAX to twice a day.
-If patient will allow can continue enemas as needed in the future.
Subjective
Subjective
Date of Service: December 22, 2023
Asked to see patient again for increased discomfort in abdomen. Hospitalist ordered abdominal x-ray which still shows fecal burden in rectum. Discussed with patient. At the present time patient is refusing repeat enemas, manual disimpaction or
magnesium citrate. She is also hesitant to have a Dulcolax suppository but she said she would at least consider this. She will also continue to take MiraLAX. This will be increased to twice daily. She states that she is not that uncomfortable at
the present time.
Objective
Data Reviewed
Laboratory Data:
Laboratory Results
12/22/23 04:35
12/22/23 04:35
Laboratory Results
Total Bilirubin 0.6 mg/dl (0.2-1.3) 12/20/23 01:23
AST 16 U/L (14-36) 12/20/23 01:23
ALT < 10 U/L (0-35) 12/20/23 01:23
Alkaline Phosphatase 87 U/L (38-126) 12/20/23 01:23
Vital Signs and I&O:
Vital Signs
Temp Pulse Resp BP Pulse Ox
97.7 F 88 16 119/72 99
12/22/23 11:05 12/22/23 11:05 12/22/23 11:05 12/22/23 11:05 12/22/23 11:05
I&O
12/21/23 12/22/23 12/23/23
06:59 06:59 06:59
Intake Total 1070 / 1070 1481 / 1481
Output Total 1000 / 1000 1150 / 1150
Balance 70 / 70 331 / 331
Physical Exam
Physical Exam
HEENT: Moist mucous membranes
Cardiology: Normal Sinus Rhythm
Pulmonary: Clear (Anterior)
GI: Soft, Non Distended, Tender (Mild lower abdominal tenderness) and Normal Bowel Sounds
Neuro: Non Focal
[2023-12-22] MEDS: DULCOLAX 10 MG RECTAL (13:11)
--- NOTE | 2023-12-22 13:41 | PN.CDI ---
CDI
- -
CDI:
Physician Documentation Request
Admit Date: 12/19/23 23:00
Dear Doctor Rey,
The purpose of this query is not to question medical judgement, but to ensure the accuracy of the conditions reported for your patient.
Clinical Indicators:
Patient admitted with sepsis.
12/22 PN, 'Acute kidney injury...-creatinine stable 1.2 (baseline since September 2023)'
Cr/GFR trend:
12/19/23 12/20/23 12/20/23
20:58 01:23 10:04
Creatinine 1.4 H 1.4 H 1.3 H
eGFR 39.23 39.23 42.88
12/21/23 12/22/23
05:15 04:35
Creatinine 1.2 H 1.2 H
eGFR 47.21 47.21
The request is for one of the following:
Additional documentation to support the condition. Indicate if this is in lieu of what may be considered standard
criteria, and/or support why the standard criteria may not be present for this patient.
TEVIN remains a known or suspected condition for this patient and is further supported by (include additional documentation in the medical record)
TEVIN has been ruled out and a more appropriate diagnosis for this patient's condition is CKD only (please specify stage)
Other (please specify)
Unable to determine
Criteria for TEVIN*
1 Increase in serum creatinine by > or = to 0.3 mg/dL (> or = to 26.5 micromol/L) within 48 hours, OR
2 Increase in serum creatinine to > or = to 1.5 times baseline, which is known or presumed to have occurred within 7 days, OR
3 Urine volume < 0.5 nL/kg/hour for six hours
Stages of Chronic Kidney Disease*
Level Description GFR
G1 Normal or High >90
G2 Mildly decreased 60-89
G3a Mildly to moderately decreased 45-59
G3b Moderately to severely decreased 30-44
G4 Severely decreased 15-29
G5 Kidney failure <15
Use of terms such as suspected, likely, concern for, or probable (associated with a specific diagnosis that is being evaluated, monitored, or treated as if it exists) are acceptable and can be coded in the inpatient setting, when documented at the
time of discharge.
Thank you,
MAKENZIE Landon RN
CDI Specialist
available via tiger text
Please use your independent medical judgment in providing your response.
--- NOTE | 2023-12-22 16:11 | CM ---
PT recommendation for SNF for fdc services and rehab. [employer] list printed and supplied to patient with instructions to choose preferences.
[2023-12-22] MEDS: PROTONIX IV 40 MG IV (16:17)
[2023-12-22] MEDS: CITROMA 300 ML PO (16:18)
[2023-12-22] MEDS: NSS (PRESERVATIVE FREE) 10 ML IV (16:18)
[2023-12-22] MEDS: FOLVITE 1 MG PO (20:23)
[2023-12-22] MEDS: CELEXA 10 MG PO (20:23)
[2023-12-22] MEDS: FLUSH (NSS) 2 FLUSH IV (23:06)
[2023-12-23] VITALS (8 sets, daily range): BP systolic 113–175; BP diastolic 66–92
[2023-12-23] MEDS: TYLENOL 650 MG PO ×2 (01:48→16:01)
[2023-12-23] MEDS: STERILE WATER FOR INJECTION 10 ML IV ×2 (01:49→16:01)
[2023-12-23] MEDS: FLUSH (NSS) 2 FLUSH IV (01:49)
[2023-12-23] MEDS: MAXIPIME 1000 MG IV ×2 (01:49→16:01)
[2023-12-23 07:17] LABS: % Basophils 0.4 % (0-2); % Eosinophils 0.2 % (0-6); % Immature Granulocytes 1.3 % (0-0.5); % Lymphocytes 11.1 % (20.5-51.1); % Monocytes 11.8 % (1.7-9.3); % Neutrophils 75.2 % (42.2-75.2); Absolute Immature Granulocytes 0.1 10^3/uL (0-0.05); Absolute Lymphocytes 0.5 10^3/uL (1.2-3.4); Absolute Monocytes 0.5 10^3/uL (0.1-0.6); Absolute Neutrophils 3.4 10^3/uL (1.4-6.5); Hematocrit 25.2 % (37.0-47.0); Mean Corp Hgb Conc. 35.7 g/dL (33.0-37.0); Mean Corpuscular Hgb 32.3 pg (27.0-31.0); Mean Corpuscular Volume 90.3 fL (81.0-99.0); Nucleated Red Blood Cells % 0 %; Red Blood Cell Count 2.79 10^6/uL (4.20-5.40); Red Cell Dist. Width 17.5 % (11.5-14.5); White Blood Cell Count 4.5 10^3/uL (4.8-10.8)
[2023-12-23 07:45] LABS: Blood Urea Nitrogen 34 mg/dl (7-17); Calcium 8.1 mg/dl (8.4-10.2); Carbon Dioxide 23 mmol/L (22-30); Chloride 104 mmol/L (98-107); Estimated Creatinine Clearance 30 ml/min; Glucose 89 mg/dl (70-99); Magnesium 1.4 mg/dl (1.6-2.3); Potassium 3.6 mmol/L (3.5-5.1); Sodium 134 mmol/L (135-145)
[2023-12-23 08:06] LABS: Platelet Count 11 10^3/uL (130-400)
[2023-12-23] MEDS: FLAGYL 500 MG 100 IV ×2 (09:18→16:00)
[2023-12-23] MEDS: NSS (PRESERVATIVE FREE) 10 ML IV (09:19)
[2023-12-23] MEDS: MIRALAX 17 GRAMS PO ×2 (09:19→19:49)
[2023-12-23] MEDS: PROTONIX IV 40 MG IV (09:19)
[2023-12-23] MEDS: SENOKOT-S 1 TABLET PO ×2 (09:19→19:49)
[2023-12-23] MEDS: HYDROPHOR 1 APPLIC TOPICAL (09:21)
[2023-12-23] MEDS: TIGAN 200 MG IM (10:49)
[2023-12-23] MEDS: ATIVAN 0.5 MG PO ×2 (12:06→19:48)
[2023-12-23] MEDS: MYLICON 80 MG PO (12:06)
--- NOTE | 2023-12-23 12:12 | W.PN.HOSP.TC ---
Today's Communication/Plan
-
see bold
Assessment / Plan
Assessment / Plan
Gen: NAD, awake and alert, appears chronically ill malnourished/cachectic
Eyes: EOMI, PERRLA, no scleral icterus.
Neck: supple.
CV: RRR, +S1/S2, no m/r/g.
Resp: CTAB, no rales, wheezes, or rhonchi.
Abd: +BS, soft, NT, ND
Skin: No rashes.
Neuro: CN 2-12 intact, non-focal.
Psych: Normal mood and affect.
12/20/23 01:23 Blood/Venous Blood Culture - Preliminary
No Growth in 72 hours- Final report to follow
12/20/23 01:32 Blood/Venous Blood Culture - Preliminary
No Growth in 72 hours- Final report to follow
12/20/23 10:40 Feces/Stool Salmonella/Shigella Culture - Final
No Salmonella, Shigella, Aeromonas or Plesiomonas species
isolated.
12/20/23 10:40 Feces/Stool Campylobacter Culture - Final
No Campylobacter species isolated.
12/20/23 10:40 Feces/Stool Shiga Toxin Test - Final
No E. coli Shiga Toxin 1 or 2 detected.
OBST series 12/22/23:
1. Prominence of the colon. No significant fecal retention within the rectum, which measures 10 cm in greatest transverse dimension. Findings are suggestive of fecal impaction, similar in appearance compared to prior CT dated 12/20/2023.
2. Hazy opacity at the right lung base, which may represent right lower lobe airspace disease and/or small right pleural effusion.
3. Sclerotic focus within the right acetabulum superior to the right hip prosthetic, also seen on recent prior CT.
Sepsis likely secondary to stercoral proctocolitis
-CT A/P with probable fecal impaction with large volume stool throughout the distended rectum
-All culture data negative to date as above
-cont IV Cefepime/Flagyl (day 5) (penicillin allergy unknown)
-S/p suppository and enema with good results although 12/22/23 OBST series with fecal impaction. Pt refusing enemas, Mg citrate added to Miralax and senna-S. As per nursing patient had 2 large bowel movements today.
Pancytopenia secondary to chemotherapy
-Leukopenia, now mild, neutropenia has resolved, remains afebrile
-Acute on chronic anemia of chronic disease: s/p 2U pRBCs, Hb stable
-Thrombocytopenia: transfuse 1U plt today
-remains afebrile
Acute kidney injury:
-with acute urinary retention possible due to severe constipation
-avery placed, now removed as of 12/23/23AM
-Cr has improved and baseline Cr likely 1.1-1.2
Other problems:
Hypokalemia, resolved
Hyponatremia, mild
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
h/of breast cancer s/p left breast lumpectomy
Anxiety/depression: cont Celexa, Ativan/Zyprexa PRN
Insomnia
h/o R hip replacement with chronic right lower extremity swelling worse than left
h/o urinary retention
Small deep tissue injury on left buttocks (POA)
Right buttock stage II pressure injury (POA)
Full code
DVT prophylaxis: SCDs in setting of Severe thrombocytopenia
Long-term prognosis poor
Anticipated Discharge: 24 - 48 hours
Subjective/Interval History
-
Date of Service: December 23, 2023
Patient was complaining of nausea. She had 2 large bowel movements today.
Objective Data
-
Labs:
Laboratory Results
12/23/23
06:28
WBC 4.5 L
Hgb 9.0 L
Hct 25.2 L
Plt Count 11 L*
Sodium 134 L
Potassium 3.6
Chloride 104
Carbon Dioxide 23
BUN 34 H
Creatinine 1.1 H
Glucose 89
Calcium 8.1 L
Vital Signs:
Vital Signs
Temp Pulse Resp BP Pulse Ox
97.8 F 91 16 132/80 98
12/23/23 07:06 12/23/23 07:06 12/23/23 07:06 12/23/23 07:06 12/23/23 07:06
I&O
12/22/23 12/23/23 12/24/23
06:59 06:59 06:59
Intake Total 1481 / 1481 537 / 537
Output Total 1150 / 1150 1025 / 1025
Balance 331 / 331 -488 / -488
--- NOTE | 2023-12-23 12:54 | W.PN.GI.CBS2 ---
Today's Communication / Plan
-
-Constipation
Had bowel movement this morning with MiraLAX, refused magnesium citrate and refused enemas
Currently patient is not on narcotics, if she is placed on narcotics, will need to adjust the bowel regimen as well.
Continue on MiraLAX 17 g twice a day as it seems to be working.
Explained to the patient that regimen with MiraLAX and Senokot would not be very helpful to move the bowels if there is large amounts of stool in the rectum unless will give her an enema to relieve the fecal impaction .� Patient absolutely
refusing.� Not for any particular reason.
continue MiraLAX and Senokot regimen.� Reinforced that she will need to be on a good bowel regimen on a long-term basis.
-Abdominal pain could be related to the metastatic disease in the liver apart from ongoing constipation.
No further GI recommendations at this time. Will sign off, please call back if needed
Assessment / Plan
-
-Constipation
Had bowel movement this morning with MiraLAX, refused magnesium citrate and refused enemas
Currently patient is not on narcotics, if she is placed on narcotics, will need to adjust the bowel regimen as well.
Continue on MiraLAX 17 g twice a day as it seems to be working.
Explained to the patient that regimen with MiraLAX and Senokot would not be very helpful to move the bowels if there is large amounts of stool in the rectum unless will give her an enema to relieve the fecal impaction .� Patient absolutely
refusing.� Not for any particular reason.
continue MiraLAX and Senokot regimen.� Reinforced that she will need to be on a good bowel regimen on a long-term basis.
-Abdominal pain could be related to the metastatic disease in the liver apart from ongoing constipation.
Subjective
Subjective
Date of Service: December 23, 2023
Patient continues to have discomfort in the abdomen and elsewhere, had 1 large bowel movement this morning and other small bowel movements as well. She refused the magnesium citrate but took MiraLAX
Objective
Data Reviewed
Laboratory Data:
Laboratory Results
12/23/23 06:28
12/23/23 06:28
Laboratory Results
Magnesium 1.4 mg/dl (1.6-2.3) L 12/23/23 06:28
Total Bilirubin 0.6 mg/dl (0.2-1.3) 12/20/23 01:23
AST 16 U/L (14-36) 12/20/23 01:23
ALT < 10 U/L (0-35) 12/20/23 01:23
Alkaline Phosphatase 87 U/L (38-126) 12/20/23 01:23
Vital Signs and I&O:
Vital Signs
Temp Pulse Resp BP Pulse Ox
97.3 F 90 16 136/92 96
12/23/23 11:03 12/23/23 11:03 12/23/23 11:03 12/23/23 11:03 12/23/23 11:03
I&O
12/22/23 12/23/23 12/24/23
06:59 06:59 06:59
Intake Total 1481 / 1481 537 / 537
Output Total 1150 / 1150 1025 / 1025
Balance 331 / 331 -488 / -488
Physical Exam
Physical Exam
GI: Soft and Non Tender (Discomfort on palpation in the mid abdomen)
--- NOTE | 2023-12-23 19:04 | PTCARENOTE ---
pt complaining that she is nauseas during the shift, IM TIGAN given as ordered with some relief, daughter mentioned that Flagyl makes her feel sick to her stomach, when she has had it before, she wants Flagyl to be stopped and switched to a
different antibiotic. report given to oncoming shift. pt conties with poor appetite.
[2023-12-23] MEDS: CELEXA 10 MG PO (19:47)
[2023-12-23] MEDS: DESENEX/MITRAZOL/ZEASORB 1 APPLIC TOPICAL (19:48)
[2023-12-23] MEDS: FOLVITE 1 MG PO (19:49)
[2023-12-23] MEDS: FLAGYL 500 MG IV (23:13)
--- NOTE | 2023-12-23 23:25 | PTCARENOTE ---
KRIS Pierce IV refused per patient and daughter. Advised covering provider.
[2023-12-24] VITALS (9 sets, daily range): BP systolic 109–157; BP diastolic 63–100
[2023-12-24] MEDS: MAXIPIME 1000 MG IV ×2 (02:04→15:27)
[2023-12-24] MEDS: STERILE WATER FOR INJECTION 10 ML IV ×2 (02:04→15:27)
[2023-12-24] MEDS: FLUSH (NSS) 2 FLUSH IV ×2 (02:04→15:30)
--- NOTE | 2023-12-24 07:28 | W.PN.HOSP.TC ---
Today's Communication/Plan
-
see bold
Assessment / Plan
Assessment / Plan
Gen: remains NAD, awake and alert, appears chronically ill malnourished/cachectic
Eyes: EOMI, PERRLA, no scleral icterus.
Neck: supple.
CV: remains RRR, +S1/S2, no m/r/g.
Resp: remains CTAB, no rales, wheezes, or rhonchi.
Abd: +BS, soft, NT, ND
Skin: No rashes.
Neuro: CN 2-12 intact, non-focal.
Psych: Normal mood and affect.
12/20/23 01:32 Blood/Venous Blood Culture - Preliminary
No Growth in 4 days- Final report to follow
12/20/23 01:23 Blood/Venous Blood Culture - Preliminary
No Growth in 4 days- Final report to follow
12/20/23 10:40 Feces/Stool Salmonella/Shigella Culture - Final
No Salmonella, Shigella, Aeromonas or Plesiomonas species
isolated.
12/20/23 10:40 Feces/Stool Campylobacter Culture - Final
No Campylobacter species isolated.
12/20/23 10:40 Feces/Stool Shiga Toxin Test - Final
No E. coli Shiga Toxin 1 or 2 detected.
OBST series 12/22/23:
1. Prominence of the colon. No significant fecal retention within the rectum, which measures 10 cm in greatest transverse dimension. Findings are suggestive of fecal impaction, similar in appearance compared to prior CT dated 12/20/2023.
2. Hazy opacity at the right lung base, which may represent right lower lobe airspace disease and/or small right pleural effusion.
3. Sclerotic focus within the right acetabulum superior to the right hip prosthetic, also seen on recent prior CT.
Sepsis likely secondary to stercoral proctocolitis:
-CT A/P with probable fecal impaction with large volume stool throughout the distended rectum
-All culture data negative to date as above
-cont IV Cefepime/Flagyl (day 6) (penicillin allergy unknown)
-S/p suppository and enema with good results although 12/22/23 OBST series with fecal impaction. Pt was refusing enemas, Mg citrate added to Miralax and senna-S. As per nursing patient had 2 large bowel movements on 12/23/23.
Pancytopenia secondary to chemotherapy
-Leukopenia, now mild, neutropenia has resolved, remains afebrile
-Acute on chronic anemia of chronic disease: s/p 2U pRBCs, Hb stable
-Thrombocytopenia: transfuse 1U plt
-remains afebrile
Acute kidney injury:
-with acute urinary retention possible due to severe constipation
-avery placed, now removed as of 12/23/23AM
-Cr has improved and baseline Cr likely 1.1-1.2
Other problems:
Hypokalemia, resolved
Hyponatremia, mild
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
h/of breast cancer s/p left breast lumpectomy
Anxiety/depression: cont Celexa, Ativan/Zyprexa PRN
Insomnia
h/o R hip replacement with chronic right lower extremity swelling worse than left
h/o urinary retention
Small deep tissue injury on left buttocks (POA)
Right buttock stage II pressure injury (POA)
Full code
DVT prophylaxis: SCDs in setting of Severe thrombocytopenia
Long-term prognosis poor
Anticipated Discharge: Within 24 hours
Subjective/Interval History
-
Date of Service: December 24, 2023
Denies CP/SOB.
Objective Data
-
Labs:
Laboratory Results
12/24/23
07:27
WBC Pending
Hgb Pending
Hct Pending
Plt Count Pending
Vital Signs:
Vital Signs
Temp Pulse Resp BP Pulse Ox
97.7 F 89 14 109/72 98
12/24/23 03:48 12/24/23 03:48 12/24/23 03:48 12/24/23 03:48 12/24/23 03:48
I&O
12/23/23 12/24/23 12/25/23
06:59 06:59 06:59
Intake Total 537 / 537 1272 / 1272
Output Total 1025 / 1025
Balance -488 / -488 1272 / 1272
[2023-12-24 08:36] LABS: Hematocrit 27.2 % (37.0-47.0); Hemoglobin 9.4 g/dL (12.0-16.0); Mean Corp Hgb Conc. 34.6 g/dL (33.0-37.0); Mean Corpuscular Volume 92.5 fL (81.0-99.0); Red Blood Cell Count 2.94 10^6/uL (4.20-5.40); Red Cell Dist. Width 17.4 % (11.5-14.5); White Blood Cell Count 6.7 10^3/uL (4.8-10.8)
[2023-12-24 08:38] LABS: Platelet Count 19 10^3/uL (130-400)
[2023-12-24 09:00] LABS: Blood Urea Nitrogen 30 mg/dl (7-17); Carbon Dioxide 25 mmol/L (22-30); Chloride 102 mmol/L (98-107); Estimated Creatinine Clearance 28 ml/min; Glucose 119 mg/dl (70-99); Potassium 2.8 mmol/L (3.5-5.1); Sodium 134 mmol/L (135-145); eGFR 47.21
[2023-12-24] MEDS: SENOKOT-S 1 TABLET PO ×2 (10:00→20:28)
[2023-12-24] MEDS: MIRALAX 17 GRAMS PO ×2 (10:00→20:27)
[2023-12-24] MEDS: FLAGYL 500 MG IV ×2 (10:01→15:27)
[2023-12-24] MEDS: PROTONIX IV 40 MG IV (10:01)
[2023-12-24] MEDS: NSS (PRESERVATIVE FREE) 10 ML IV (10:01)
[2023-12-24] MEDS: DESENEX/MITRAZOL/ZEASORB 1 APPLIC TOPICAL ×2 (10:02→20:30)
[2023-12-24] MEDS: HYDROPHOR 1 APPLIC TOPICAL (10:02)
[2023-12-24] MEDS: TYLENOL 650 MG PO ×2 (11:15→20:25)
[2023-12-24] MEDS: ATIVAN 0.5 MG PO ×2 (11:16→20:25)
--- NOTE | 2023-12-24 11:39 | CM ---
CM met with pt at bedside.
Pt requested CM discuss with daughter discharge planning and SNF. Pt does report wanting to get stronger.
CM called daughter Latha at [phone] and left a VM requesting callback.
--- NOTE | 2023-12-24 15:37 | PTCARENOTE ---
pt had a unit of Platelets transfused this shift, she refused Flagyl because it makes her sick to the stomach, and very nauseous, made aware no new orders at this time.
--- NOTE | 2023-12-24 15:51 | CM ---
CM received call back from daughter Latha.
Reviewed PT eval with daughter over phone.
Daughter in agreement for rehab however preference is for [facility] or plan to bring home with . CM explained that pt will need to be able to participate in 3 hours of therapy and must qualify for acute rehab. CM explained the difference
between acute, subacute and SNF and daughter shares pt has had bad experiences at SNF's in the past-unsure of names-and is not interested in SNF level of rehab at this time. CM inquired if daughter can manage pt at home and answered yes.
CM sent referral via [facility] to [facility] for review. CM to follow up tomorrow.
[2023-12-24] MEDS: FOLVITE 1 MG PO (20:25)
[2023-12-24] MEDS: CELEXA 10 MG PO (20:28)
[2023-12-25] VITALS (8 sets, daily range): BP systolic 102–132; BP diastolic 62–82; PULSE 81
[2023-12-25] MEDS: FLAGYL 500 MG IV (00:33)
[2023-12-25] MEDS: MAXIPIME 1000 MG IV (02:35)
[2023-12-25] MEDS: ATIVAN 0.5 MG PO ×3 (02:35→18:08)
[2023-12-25] MEDS: STERILE WATER FOR INJECTION 10 ML IV (02:35)
[2023-12-25 06:16] LABS: Hematocrit 23.8 % (37.0-47.0); Hemoglobin 8.1 g/dL (12.0-16.0); Mean Corpuscular Hgb 31.8 pg (27.0-31.0); Mean Corpuscular Volume 93.3 fL (81.0-99.0); Red Blood Cell Count 2.55 10^6/uL (4.20-5.40); Red Cell Dist. Width 17.3 % (11.5-14.5); White Blood Cell Count 6.8 10^3/uL (4.8-10.8)
[2023-12-25 06:20] LABS: Platelet Count 29 10^3/uL (130-400)
--- NOTE | 2023-12-25 06:40 | PTCARENOTE ---
Critical value, [address] MACHINE [employer] notified; no new orders at this time.
[2023-12-25 06:45] LABS: Blood Urea Nitrogen 29 mg/dl (7-17); Calcium 7.4 mg/dl (8.4-10.2); Carbon Dioxide 27 mmol/L (22-30); Chloride 104 mmol/L (98-107); Estimated Creatinine Clearance 33 ml/min; Glucose 87 mg/dl (70-99); Potassium 2.6 mmol/L (3.5-5.1); Sodium 133 mmol/L (135-145); eGFR 58.75
--- NOTE | 2023-12-25 07:27 | W.PN.HOSP.TC ---
Today's Communication/Plan
-
see bold
Assessment / Plan
Assessment / Plan
Gen: continues to remain NAD, awake and alert, appears chronically ill malnourished/cachectic
Eyes: EOMI, PERRLA, no scleral icterus.
Neck: supple.
CV: continues to remain RRR, +S1/S2, no m/r/g.
Resp: continues to remain CTAB, no rales, wheezes, or rhonchi.
Abd: +BS, soft, NT, ND
Skin: No rashes.
Neuro: CN 2-12 intact, non-focal.
Psych: Normal mood and affect.
12/20/23 01:32 Blood/Venous Blood Culture - Final
No Growth - Final Report
12/20/23 01:23 Blood/Venous Blood Culture - Final
No Growth - Final Report
12/20/23 10:40 Feces/Stool Salmonella/Shigella Culture - Final
No Salmonella, Shigella, Aeromonas or Plesiomonas species
isolated.
12/20/23 10:40 Feces/Stool Campylobacter Culture - Final
No Campylobacter species isolated.
12/20/23 10:40 Feces/Stool Shiga Toxin Test - Final
No E. coli Shiga Toxin 1 or 2 detected.
OBST series 12/22/23:
1. Prominence of the colon. No significant fecal retention within the rectum, which measures 10 cm in greatest transverse dimension. Findings are suggestive of fecal impaction, similar in appearance compared to prior CT dated 12/20/2023.
2. Hazy opacity at the right lung base, which may represent right lower lobe airspace disease and/or small right pleural effusion.
3. Sclerotic focus within the right acetabulum superior to the right hip prosthetic, also seen on recent prior CT.
Sepsis likely secondary to stercoral proctocolitis:
-CT A/P with probable fecal impaction with large volume stool throughout the distended rectum
-All culture data negative to date as above
-S/p suppository and enema with good results although 12/22/23 OBST series with fecal impaction. Pt was refusing enemas, Mg citrate added to Miralax and senna-S. As per nursing patient had 2 large bowel movements on 12/23/23.
-stop Cefepime/Flagyl and observe
Pancytopenia secondary to chemotherapy
-Leukopenia, now mild, neutropenia has resolved, remains afebrile
-Acute on chronic anemia of chronic disease: s/p 2U pRBCs, Hb stable
-Thrombocytopenia: s/p plt transfusions
-remains afebrile
Acute kidney injury:
-with acute urinary retention possible due to severe constipation
-avery placed, now removed as of 12/23/23AM
-Cr has improved and baseline Cr likely 1.1-1.2
Other problems:
Hypokalemia, total of 80meq K now
Hypomagnesemia: 2g IV Mg now
Hyponatremia, mild
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
h/of breast cancer s/p left breast lumpectomy
Anxiety/depression: cont Celexa, Ativan/Zyprexa PRN
Insomnia
h/o R hip replacement with chronic right lower extremity swelling worse than left
h/o urinary retention
Small deep tissue injury on left buttocks (POA)
Right buttock stage II pressure injury (POA)
Full code
DVT prophylaxis: SCDs in setting of Severe thrombocytopenia
Long-term prognosis poor
Anticipated Discharge: 24 - 48 hours
Subjective/Interval History
-
Date of Service: December 25, 2023
Objective Data
-
Labs:
Laboratory Results
12/25/23
04:57
WBC 6.8
Hgb 8.1 L
Hct 23.8 L
Plt Count 29 L* D
Sodium 133 L
Potassium 2.6 L*
Chloride 104
Carbon Dioxide 27
BUN 29 H
Creatinine 1.0
Glucose 87
Calcium 7.4 L
Vital Signs:
Vital Signs
Temp Pulse Resp BP Pulse Ox
98.1 F 77 16 102/64 98
12/25/23 03:47 12/25/23 03:47 12/25/23 03:47 12/25/23 03:47 12/25/23 03:47
I&O
12/24/23 12/25/23 12/26/23
06:59 06:59 06:59
Intake Total 1272 / 1272 856 / 856
Output Total 775 / 775
Balance 1272 / 1272 81 / 81
[2023-12-25] MEDS: KCL 40 MEQ PO ×2 (08:26→22:43)
[2023-12-25] MEDS: MAGNESIUM SULFATE 50 IV (08:26)
[2023-12-25] MEDS: MIRALAX 17 GRAMS PO ×2 (08:27→20:26)
[2023-12-25] MEDS: KCL 270 MEQ IV (08:27)
[2023-12-25] MEDS: PROTONIX IV 40 MG IV (08:27)
[2023-12-25] MEDS: DESENEX/MITRAZOL/ZEASORB 1 APPLIC TOPICAL ×2 (08:28→20:27)
[2023-12-25] MEDS: SENOKOT-S 1 TABLET PO ×2 (08:28→20:25)
[2023-12-25] MEDS: NSS (PRESERVATIVE FREE) 10 ML IV (08:28)
[2023-12-25] MEDS: HYDROPHOR 2 APPLIC TOPICAL (08:29)
[2023-12-25] MEDS: STERILE WATER FOR INJECTION IV (14:10)
--- NOTE | 2023-12-25 16:00 | CM ---
Patient was recommended for SNF. Family only wanted [facility] . Referral was sent and patient was not accepted. [facility] noted that patient is not able to participate in acute rehab program. [facility] recommended SNF. This CM spoke with daughter and
reviewed options. Additional referrals have been forwarded to SNF's. Daughter will speak with patient's tonight and decide if they want a SNF or home with HH. is home to care for patient. Also spoke with patient and explained
above. She deferred to daughter and .
[2023-12-25] MEDS: FOLVITE 1 MG PO (20:25)
[2023-12-25] MEDS: CELEXA 10 MG PO (20:25)
[2023-12-25 20:45] LABS: Potassium 3.4 mmol/L (3.5-5.1)
--- NOTE | 2023-12-25 22:56 | VATNOTE ---
called to place IV line. Pt removed right midline. Small 24p placed in right wrist. Wrapped with Kerlix.
[2023-12-26] VITALS (7 sets, daily range): BP systolic 114–129; BP diastolic 69–80; PULSE 91; O2SAT 99
[2023-12-26] MEDS: ATIVAN 0.5 MG PO ×3 (02:43→22:18)
[2023-12-26 06:19] LABS: Hematocrit 24.7 % (37.0-47.0); Hemoglobin 8.3 g/dL (12.0-16.0); Mean Corp Hgb Conc. 33.6 g/dL (33.0-37.0); Mean Corpuscular Volume 95.4 fL (81.0-99.0); Mean Platelet Volume 11.9 fL (7.4-10.4); Red Blood Cell Count 2.59 10^6/uL (4.20-5.40); Red Cell Dist. Width 17.8 % (11.5-14.5); White Blood Cell Count 9.7 10^3/uL (4.8-10.8)
[2023-12-26 06:32] LABS: Blood Urea Nitrogen 27 mg/dl (7-17); Calcium 7.4 mg/dl (8.4-10.2); Carbon Dioxide 26 mmol/L (22-30); Chloride 105 mmol/L (98-107); Estimated Creatinine Clearance 33 ml/min; Glucose 66 mg/dl (70-99); Platelet Count 24 10^3/uL (130-400); Potassium 3.5 mmol/L (3.5-5.1); Sodium 133 mmol/L (135-145); eGFR 58.75
[2023-12-26] MEDS: SENOKOT-S 1 TABLET PO ×2 (09:09→21:34)
[2023-12-26] MEDS: MIRALAX 17 GRAMS PO (09:09)
[2023-12-26] MEDS: PROTONIX 40 MG PO (09:09)
[2023-12-26] MEDS: DESENEX/MITRAZOL/ZEASORB 1 APPLIC TOPICAL ×2 (09:12→21:35)
[2023-12-26] MEDS: HYDROPHOR 1 APPLIC TOPICAL (09:12)
[2023-12-26] MEDS: NSS (PRESERVATIVE FREE) IV (09:30)
[2023-12-26] MEDS: PROTONIX IV IV (09:30)
--- NOTE | 2023-12-26 10:25 | PTCARENOTE ---
Per overnight associate RN, RN discovered patient with both midline and peripheral IVs removed overnight. Attending MD made aware by this RN in AM, IV protonix changed to PO protonix, no IV access at this time.
--- NOTE | 2023-12-26 13:40 | W.PN.HOSP.TC ---
Today's Communication/Plan
-
DC planning to home/VN
Assessment / Plan
Assessment / Plan
Gen: continues to remain NAD, awake and alert, appears chronically ill malnourished/cachectic
Eyes: EOMI, PERRLA, no scleral icterus.
Neck: supple.
CV: continues to remain RRR, +S1/S2, no m/r/g.
Resp: continues to remain CTAB, no rales, wheezes, or rhonchi.
Abd: +BS, soft, NT, ND
Skin: No rashes.
Neuro: CN 2-12 intact, non-focal.
Psych: Normal mood and affect.
12/20/23 01:32 Blood/Venous Blood Culture - Final
No Growth - Final Report
12/20/23 01:23 Blood/Venous Blood Culture - Final
No Growth - Final Report
12/20/23 10:40 Feces/Stool Salmonella/Shigella Culture - Final
No Salmonella, Shigella, Aeromonas or Plesiomonas species
isolated.
12/20/23 10:40 Feces/Stool Campylobacter Culture - Final
No Campylobacter species isolated.
12/20/23 10:40 Feces/Stool Shiga Toxin Test - Final
No E. coli Shiga Toxin 1 or 2 detected.
OBST series 12/22/23:
1. Prominence of the colon. No significant fecal retention within the rectum, which measures 10 cm in greatest transverse dimension. Findings are suggestive of fecal impaction, similar in appearance compared to prior CT dated 12/20/2023.
2. Hazy opacity at the right lung base, which may represent right lower lobe airspace disease and/or small right pleural effusion.
3. Sclerotic focus within the right acetabulum superior to the right hip prosthetic, also seen on recent prior CT.
Sepsis likely secondary to stercoral proctocolitis:
-CT A/P with probable fecal impaction with large volume stool throughout the distended rectum
-All culture data negative to date as above
-S/p suppository and enema with good results although 12/22/23 OBST series with fecal impaction. Pt was refusing enemas, Mg citrate added to Miralax and senna-S. As per nursing patient had 2 large bowel movements on 12/23/23.
-stop Cefepime/Flagyl and observe
Pancytopenia secondary to chemotherapy
-Leukopenia, now mild, neutropenia has resolved, remains afebrile
-Acute on chronic anemia of chronic disease: s/p 2U pRBCs, Hb stable
-Thrombocytopenia: s/p plt transfusions. plt count stable.
-remains afebrile
Acute kidney injury:
-with acute urinary retention possible due to severe constipation
-avery placed, now removed as of 12/23/23AM
-Cr has improved and baseline Cr likely 1.1-1.2
Other problems:
Hypokalemia, replete prn
Hypomagnesemia: replete prn
Hyponatremia, mild
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
h/of breast cancer s/p left breast lumpectomy
Anxiety/depression: cont Celexa, Ativan/Zyprexa PRN
Insomnia
h/o R hip replacement with chronic right lower extremity swelling worse than left
h/o urinary retention
Small deep tissue injury on left buttocks (POA)
Right buttock stage II pressure injury (POA)
Full code
DVT prophylaxis: SCDs in setting of Severe thrombocytopenia
Long-term prognosis poor
Anticipated Discharge: 24 - 48 hours
Subjective/Interval History
-
Date of Service: December 26, 2023
patient removed IV lines last evening
Hb, platelets stable. patient eager for DC but understands that snow storm complicates safe planning
Objective Data
-
Labs:
Laboratory Results
12/26/23
04:44
WBC 9.7
Hgb 8.3 L
Hct 24.7 L
Plt Count 24 L*
Sodium 133 L
Potassium 3.5
Chloride 105
Carbon Dioxide 26
BUN 27 H
Creatinine 1.0
Glucose 66 L
Calcium 7.4 L
Vital Signs:
Vital Signs
Temp Pulse Resp BP Pulse Ox
97.2 F 98 16 124/72 99
12/26/23 11:00 12/26/23 11:00 12/26/23 11:00 12/26/23 11:00 12/26/23 11:00
I&O
12/25/23 12/26/23 12/27/23
06:59 06:59 06:59
Intake Total 856 / 856 860 / 860
Output Total 775 / 775
Balance 81 / 81 860 / 860
Data Reviewed
-
Total Time Spent with Patient (in minutes): 41
Labs: Labs Reviewed by me
[2023-12-26] MEDS: TYLENOL 650 MG PO ×2 (15:59→22:18)
--- NOTE | 2023-12-26 16:03 | CM ---
Spoke with pts daughter and regarding SNF vs HH
Daughter given names of facilities mother was accepted to
Family plan to discuss and decide on best option for pt
Daughter will call with decision
CM will follow
[2023-12-26] MEDS: MIRALAX PO (21:34)
[2023-12-26] MEDS: FOLVITE 1 MG PO (21:34)
[2023-12-26] MEDS: CELEXA 10 MG PO (21:34)
[2023-12-27 03:35] VITALS: BP 124/70
[2023-12-27 04:27] LABS: Hematocrit 25.7 % (37.0-47.0); Hemoglobin 8.8 g/dL (12.0-16.0); Mean Corp Hgb Conc. 34.2 g/dL (33.0-37.0); Mean Corpuscular Hgb 31.3 pg (27.0-31.0); Mean Corpuscular Volume 91.5 fL (81.0-99.0); Mean Platelet Volume 12.6 fL (7.4-10.4); Platelet Count 33 10^3/uL (130-400); Red Blood Cell Count 2.81 10^6/uL (4.20-5.40); Red Cell Dist. Width 17.7 % (11.5-14.5); White Blood Cell Count 10.2 10^3/uL (4.8-10.8)
[2023-12-27 05:24] LABS: Blood Urea Nitrogen 27 mg/dl (7-17); Calcium 8.1 mg/dl (8.4-10.2); Carbon Dioxide 25 mmol/L (22-30); Chloride 101 mmol/L (98-107); Estimated Creatinine Clearance 33 ml/min; Glucose 79 mg/dl (70-99); Potassium 3.8 mmol/L (3.5-5.1); Sodium 131 mmol/L (135-145); eGFR 58.75
[2023-12-27 07:10] VITALS: BP 129/79
[2023-12-27] MEDS: SENOKOT-S 1 TABLET PO (08:50)
[2023-12-27] MEDS: PROTONIX 40 MG PO (08:50)
[2023-12-27] MEDS: MIRALAX 17 GRAMS PO ×2 (08:50→21:37)
[2023-12-27] MEDS: HYDROPHOR 1 APPLIC TOPICAL (08:50)
[2023-12-27] MEDS: DESENEX/MITRAZOL/ZEASORB 1 APPLIC TOPICAL ×2 (08:50→22:02)
[2023-12-27] MEDS: ATIVAN 0.5 MG PO ×3 (08:53→21:52)
--- NOTE | 2023-12-27 09:27 | W.PN.HOSP.TC ---
Today's Communication/Plan
-
home DC per family in 24 hours/VN
SNF has been declined by patient/family
Assessment / Plan
Assessment / Plan
Gen: continues to remain NAD, awake and alert, appears chronically ill malnourished/cachectic
Eyes: EOMI, PERRLA, no scleral icterus.
Neck: supple.
CV: continues to remain RRR, +S1/S2, no m/r/g.
Resp: continues to remain CTAB, no rales, wheezes, or rhonchi.
Abd: +BS, soft, NT, ND
Skin: No rashes.
Neuro: CN 2-12 intact, non-focal.
Psych: Normal mood and affect.
12/20/23 01:32 Blood/Venous Blood Culture - Final
No Growth - Final Report
12/20/23 01:23 Blood/Venous Blood Culture - Final
No Growth - Final Report
12/20/23 10:40 Feces/Stool Salmonella/Shigella Culture - Final
No Salmonella, Shigella, Aeromonas or Plesiomonas species
isolated.
12/20/23 10:40 Feces/Stool Campylobacter Culture - Final
No Campylobacter species isolated.
12/20/23 10:40 Feces/Stool Shiga Toxin Test - Final
No E. coli Shiga Toxin 1 or 2 detected.
OBST series 12/22/23:
1. Prominence of the colon. No significant fecal retention within the rectum, which measures 10 cm in greatest transverse dimension. Findings are suggestive of fecal impaction, similar in appearance compared to prior CT dated 12/20/2023.
2. Hazy opacity at the right lung base, which may represent right lower lobe airspace disease and/or small right pleural effusion.
3. Sclerotic focus within the right acetabulum superior to the right hip prosthetic, also seen on recent prior CT.
Sepsis likely secondary to stercoral proctocolitis:
-CT A/P with probable fecal impaction with large volume stool throughout the distended rectum
-All culture data negative to date as above
-S/p suppository and enema with good results although 12/22/23 OBST series with fecal impaction. Pt was refusing enemas, Mg citrate added to Miralax and senna-S. As per nursing patient had 2 large bowel movements on 12/23/23.
-stop Cefepime/Flagyl and observe
Pancytopenia secondary to chemotherapy
-Leukopenia, now mild, neutropenia has resolved, remains afebrile
-Acute on chronic anemia of chronic disease: s/p 2U pRBCs, Hb stable
-Thrombocytopenia: s/p plt transfusions. plt count stable.
-remains afebrile
Acute kidney injury:
-with acute urinary retention possible due to severe constipation
-avery placed, now removed as of 12/23/23AM
-Cr has improved and baseline Cr likely 1.1-1.2
Other problems:
Hypokalemia, replete prn
Hypomagnesemia: replete prn
Hyponatremia, mild
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
h/of breast cancer s/p left breast lumpectomy
Anxiety/depression: cont Celexa, Ativan/Zyprexa PRN
Insomnia
h/o R hip replacement with chronic right lower extremity swelling worse than left
h/o urinary retention
Small deep tissue injury on left buttocks (POA)
Right buttock stage II pressure injury (POA)
Full code
DVT prophylaxis: SCDs in setting of Severe thrombocytopenia
Long-term prognosis poor
Anticipated Discharge: Within 24 hours
Subjective/Interval History
-
Date of Service: December 27, 2023
dizzy due to lack of moving, but refusing to work with walker, asked me to leave her room
Objective Data
-
Labs:
Laboratory Results
12/27/23
04:09
WBC 10.2
Hgb 8.8 L
Hct 25.7 L
Plt Count 33 L D
Sodium 131 L
Potassium 3.8
Chloride 101
Carbon Dioxide 25
BUN 27 H
Creatinine 1.0
Glucose 79
Calcium 8.1 L
Vital Signs:
Vital Signs
Temp Pulse Resp BP Pulse Ox
97.9 F 97 16 129/79 99
12/27/23 07:10 12/27/23 07:10 12/27/23 07:10 12/27/23 07:10 12/27/23 07:10
I&O
12/26/23 12/27/23 12/28/23
06:59 06:59 06:59
Intake Total 860 / 860 480 / 480
Output Total 575 / 575
Balance 860 / 860 -95 / -95
Data Reviewed
-
Total Time Spent with Patient (in minutes): 45
Labs: Labs Reviewed by me
[2023-12-27 11:03] VITALS: BP 142/83
[2023-12-27 15:11] VITALS: BP 133/75
--- NOTE | 2023-12-27 17:02 | CM ---
Daughter left message that she will take patient home and patient's will be attending to her care along with HH VN and PT/OT services. Patient had services in the past with an agency but she is not certain of the name. She requested I call
patient's . This CM called at this time. He does not know name of agency. He is cooking for a group and he requested I call the daughter. Called daughter and left message.
[2023-12-27 19:26] VITALS: BP 132/78
[2023-12-27] MEDS: FOLVITE 1 MG PO (21:37)
[2023-12-27] MEDS: CELEXA 10 MG PO (21:37)
[2023-12-27] MEDS: SENOKOT-S PO (21:38)
[2023-12-27] MEDS: TYLENOL 650 MG PO (21:52)
[2023-12-27 23:12] VITALS: BP 117/68
[2023-12-28 02:59] VITALS: BP 138/79
[2023-12-28 06:21] LABS: Hematocrit 22.8 % (37.0-47.0); Hemoglobin 7.9 g/dL (12.0-16.0); Mean Corp Hgb Conc. 34.6 g/dL (33.0-37.0); Mean Corpuscular Hgb 32.4 pg (27.0-31.0); Mean Corpuscular Volume 93.4 fL (81.0-99.0); Mean Platelet Volume 12.7 fL (7.4-10.4); Platelet Count 41 10^3/uL (130-400); Red Blood Cell Count 2.44 10^6/uL (4.20-5.40); Red Cell Dist. Width 17.5 % (11.5-14.5); White Blood Cell Count 8.9 10^3/uL (4.8-10.8)
[2023-12-28 07:05] LABS: Blood Urea Nitrogen 23 mg/dl (7-17); Calcium 7.7 mg/dl (8.4-10.2); Carbon Dioxide 29 mmol/L (22-30); Chloride 103 mmol/L (98-107); Estimated Creatinine Clearance 37 ml/min; Glucose 64 mg/dl (70-99); Potassium 3.4 mmol/L (3.5-5.1); Sodium 132 mmol/L (135-145); eGFR > 60.00
[2023-12-28 07:20] VITALS: BP 125/76
[2023-12-28] MEDS: MIRALAX 17 GRAMS PO (09:24)
[2023-12-28] MEDS: PROTONIX 40 MG PO (09:24)
[2023-12-28] MEDS: SENOKOT-S 1 TABLET PO (09:24)
[2023-12-28] MEDS: HYDROPHOR 1 APPLIC TOPICAL (09:25)
[2023-12-28] MEDS: DESENEX/MITRAZOL/ZEASORB 1 APPLIC TOPICAL (09:25)
[2023-12-28] MEDS: ATIVAN 0.5 MG PO (10:52)
--- NOTE | 2023-12-28 11:34 | WOUNDNOTE ---
SPINE (blanchable red)
--- NOTE | 2023-12-28 11:37 | WOUNDNOTE ---
[facility] RN note: Patient's sacral ulcers appear laboratory equipment cleaner than 12/20/23 photo (multiple deep dermal stage 2 on R sacral area; deep dermal pink stage 2 vs pink with yellow/brown fibrin stage 3 on L sacral area). Patient on a waffle air overlay. L heel
blanchable persistent red. R heel without redness. Silicone border foam changed on sacrum. Heel foam dressings changed. Patient turned to L semi side lying position with help from RN Juni. Heels off bed with pillow. Patient has an air chair cushion.
Appetite poor. She has ensure supplement. Patient stated she has a hospital bed at home. Spoke with Lithograph Printer Ankit Simpson re: recommend air overlay or air mattress with her hospital bed if not already in place.
[2023-12-28 11:43] VITALS: BP 147/79; PULSE 91
[2023-12-28 11:44] VITALS: BP 147/79
[2023-12-28 11:46] VITALS: BP 147/79; PULSE 91
--- NOTE | 2023-12-28 14:09 | W.PN.HOSP.TC ---
Today's Communication/Plan
-
dc home per fam request/VN
Assessment / Plan
Assessment / Plan
Gen: continues to remain NAD, awake and alert, appears chronically ill malnourished/cachectic
Eyes: EOMI, PERRLA, no scleral icterus.
Neck: supple.
CV: continues to remain RRR, +S1/S2, no m/r/g.
Resp: continues to remain CTAB, no rales, wheezes, or rhonchi.
Abd: +BS, soft, NT, ND
Skin: No rashes.
Neuro: CN 2-12 intact, non-focal.
Psych: Normal mood and affect.
12/20/23 01:32 Blood/Venous Blood Culture - Final
No Growth - Final Report
12/20/23 01:23 Blood/Venous Blood Culture - Final
No Growth - Final Report
12/20/23 10:40 Feces/Stool Salmonella/Shigella Culture - Final
No Salmonella, Shigella, Aeromonas or Plesiomonas species
isolated.
12/20/23 10:40 Feces/Stool Campylobacter Culture - Final
No Campylobacter species isolated.
12/20/23 10:40 Feces/Stool Shiga Toxin Test - Final
No E. coli Shiga Toxin 1 or 2 detected.
OBST series 12/22/23:
1. Prominence of the colon. No significant fecal retention within the rectum, which measures 10 cm in greatest transverse dimension. Findings are suggestive of fecal impaction, similar in appearance compared to prior CT dated 12/20/2023.
2. Hazy opacity at the right lung base, which may represent right lower lobe airspace disease and/or small right pleural effusion.
3. Sclerotic focus within the right acetabulum superior to the right hip prosthetic, also seen on recent prior CT.
Sepsis likely secondary to stercoral proctocolitis:
-CT A/P with probable fecal impaction with large volume stool throughout the distended rectum
-All culture data negative to date as above
-S/p suppository and enema with good results although 12/22/23 OBST series with fecal impaction. Pt was refusing enemas, Mg citrate added to Miralax and senna-S. As per nursing patient had 2 large bowel movements on 12/23/23.
-stop Cefepime/Flagyl and observe
Pancytopenia secondary to chemotherapy
-Leukopenia, now mild, neutropenia has resolved, remains afebrile
-Acute on chronic anemia of chronic disease: s/p 2U pRBCs, Hb stable
-Thrombocytopenia: s/p plt transfusions. plt count stable.
-remains afebrile
Acute kidney injury:
-with acute urinary retention possible due to severe constipation
-avery placed, now removed as of 12/23/23AM
-Cr has improved and baseline Cr likely 1.1-1.2
Other problems:
Hypokalemia, replete prn
Hypomagnesemia: replete prn
Hyponatremia, mild
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
h/of breast cancer s/p left breast lumpectomy
Anxiety/depression: cont Celexa, Ativan/Zyprexa PRN
Insomnia
h/o R hip replacement with chronic right lower extremity swelling worse than left
h/o urinary retention
Small deep tissue injury on left buttocks (POA)
Right buttock stage II pressure injury (POA)
Full code
DVT prophylaxis: SCDs in setting of Severe thrombocytopenia
Long-term prognosis poor
More than 30 minutes spent in discharge including
Final examination of the patient
Summarizing hospital stay
Instructions for continuing care to all relevant caregivers
Preparation of discharge records, prescriptions, and referral forms
Total time spent (in minutes): 40
Anticipated Discharge: Today
Subjective/Interval History
-
Date of Service: December 28, 2023
Hb 7.8
plt 41
patient adamant to go home
Objective Data
-
Labs:
Laboratory Results
12/28/23
04:52
WBC 8.9
Hgb 7.9 L
Hct 22.8 L
Plt Count 41 L D
Sodium 132 L
Potassium 3.4 L
Chloride 103
Carbon Dioxide 29
BUN 23 H
Creatinine 0.9
Glucose 64 L
Calcium 7.7 L
Vital Signs:
Vital Signs
Temp Pulse Resp BP Pulse Ox
98.0 F 91 16 147/79 99
12/28/23 11:44 12/28/23 11:44 12/28/23 11:44 12/28/23 11:44 12/28/23 11:44
I&O
12/27/23 12/28/23 12/29/23
06:59 06:59 06:59
Intake Total 480 / 480 720 / 720
Output Total 575 / 575 600 / 600
Balance -95 / -95 120 / 120
Data Reviewed
-
Total Time Spent with Patient (in minutes): 45
Labs: Labs Reviewed by me
--- NOTE | 2023-12-28 14:17 | W.DS.TRANS ---
DC Summary - Air Pumper
-
Discharge Instructions:
Discharge Diagnosis/Procedures sepsis from stercoral colitis, pancytopenia in
setting of stage 4 cancer
Diet Regular
Activity As tolerated
Bathing Restrictions None
Instructions:
Stand-Alone Forms:
Changes to Home Medications: No
Discharge Medications:
DC Medications w/original date entered in [facility]
osimertinib 80 mg tablet (Tagrisso) 80 mg PO DAILY Cancer 02/11/23
lorazepam 0.5 mg tablet (Ativan) 0.5 mg PO BID PRN anxiety 04/15/23
citalopram 10 mg tablet 10 mg PO DAILY@1999 Mental Health/Anxiety 10/12/23
folic acid 1 mg tablet 1 mg PO DAILY@1999 Supplement 10/12/23
olanzapine 5 mg tablet 5 mg PO USEASDIRECTD Mental Health/Anxiety 10/12/23
ondansetron HCl 8 mg tablet 8 mg PO Q8H PRN nausea/vomiting 10/12/23
olanzapine 5 mg tablet 5 mg PO HS PRN Mental health 12/19/23
pantoprazole 40 mg tablet,delayed release 40 mg PO DAILY PRN gi upset 12/19/23
polyethylene glycol 3350 17 gram oral powder packet (HealthyLax) 17 g PO BID #60 ea 12/28/23
sennosides 8.6 mg-docusate sodium 50 mg tablet (Stool Softener-Stimulant Laxative) 1 tab PO BID #60 tabs 12/28/23
Home Medication Changes
Pending Results: No
Total time spent discharging patient (in min): 41
--- NOTE | 2023-12-28 14:36 | CM ---
Addendum entered by Ankit Rios 12/28/23 14:42:
Patient, and daughter notified of discharge.
Original Note:
Patient has been medically cleared for discharge to home with HH VN, PT/OT and [facility]IST with [facility]. Patient and family declined SNF. Per wound care, patient now has a stage 3 sacral wound and will require an air mattress. Referral made to
[facility]. Spoke with Thu and faxed medical records and script. [facility] fax # [phone]. Air mattress must be approved by Medicare prior to delivery. Transport via ambulance will be scheduled.
[facility] FAX # [phone].
[2023-12-28 15:15] VITALS: BP 141/75
[2023-12-28] MEDS: KLOR-CON 40 MEQ PO (15:30)
--- NOTE | 2023-12-28 17:24 | WOUNDNOTE ---
WOC RN note: t/c Spoke with patient's daughter with sacral wound update; reviewed pressure injury prevention measures with daughter. Left pressure ulcer prevention patient instruction handout by Luiza for patient at her bedside table.
--- NOTE | 2023-12-28 17:38 | PTCARENOTE ---
Called pt's POA daughter Latha and went over discharge paperwork with her. Transport here to garbage pick up man pt and transport via abulance to pt's home. Daughter made aware.
== END 2023-12-28 17:41 | disposition home health service (06) | DRG 871 ==
LOC: 2 NORTH 23:00
PROVIDERS: Hospitalist; Internal Medicine; Nurse Practitioner Gerontology; Student in an Organized Health Care Education/Training Program; ADMITTING PHYSICIAN Hospitalist; ATTENDING PHYSICIAN Internal Medicine; CONSULT PHYSICIAN Internal Medicine Gastroenterology; EMERGENCY PHYSICIAN Emergency Medicine; FAMILY PHYSICIAN Internal Medicine
PROC: 30233R1 Transfusion of Nonautologous Platelets into Peripheral Vein, Percutaneous Approach (ICD-10-PCS; 2023-12-19)
PROC: 30233N1 Transfusion of Nonautologous Red Blood Cells into Peripheral Vein, Percutaneous Approach (ICD-10-PCS; 2023-12-20)
DX: A41.9 Sepsis, unspecified organism (principal); D61.810 Antineoplastic chemotherapy induced pancytopenia; E43 Unspecified severe protein-calorie malnutrition; C78.7 Secondary malignant neoplasm of liver and intrahepatic bile duct; C79.31 Secondary malignant neoplasm of brain; C34.90 Malignant neoplasm of unspecified part of unspecified bronchus or lung; E87.1 Hypo-osmolality and hyponatremia; Z68.1 Body mass index [BMI] 19.9 or less, adult; R60.0 Localized edema; D63.8 Anemia in other chronic diseases classified elsewhere; F41.9 Anxiety disorder, unspecified; F32.A Depression, unspecified; G47.00 Insomnia, unspecified; R59.0 Localized enlarged lymph nodes; T45.1X5A Adverse effect of antineoplastic and immunosuppressive drugs, initial encounter; E87.6 Hypokalemia; N18.30 Chronic kidney disease, stage 3 unspecified; R33.9 Retention of urine, unspecified; M79.89 Other specified soft tissue disorders; K52.89 Other specified noninfective gastroenteritis and colitis; E83.42 Hypomagnesemia; L89.312 Pressure ulcer of right buttock, stage 2; L89.326 Pressure-induced deep tissue damage of left buttock; K59.00 Constipation, unspecified; Z92.3 Personal history of irradiation; Z96.641 Presence of right artificial hip joint; Z88.0 Allergy status to penicillin; Z85.3 Personal history of malignant neoplasm of breast; Z87.891 Personal history of nicotine dependence
CPT/HCPCS: 36430; 70450; 74022; 74176; 80048; 80053; 81003; 83735; 84132; 85014; 85018; 85025; 85027; 86850; 86900; 86901; 86920; 87040; 87045; 87046; 87427; 93005; 96360; 97163; 97167; 97530; 97535; 99291; P9016; P9073